=== PATIENT | female | born 1950 | race Caucasian/White ===

== ENCOUNTER 2021-04-08 12:24 | Outpatient (CLI) | payer MEDICARE, SELFPAY ==
[2021-04-08 13:37] LABS: SARS-CoV-2 RNA PCR Negative (Negative)
== END 2021-04-08 12:25 | disposition home or self-care (01) ==
LOC: CHSLAB 12:33
PROVIDERS: PCP Physician Assistant; Visit Provider Physician Assistant
DX: B34.9 Viral infection, unspecified (principal); Z20.822 Contact with and (suspected) exposure to COVID-19
CPT/HCPCS: C9803; U0003; U0005

== ENCOUNTER 2021-08-11 13:42 | Outpatient (CLI) | payer MEDICARE, OTHER, SELFPAY | END 2021-08-11 13:43 | disposition home or self-care (01) | LOC: CHSLAB 13:45 | PROVIDERS: PCP Physician Assistant; Visit Provider Specialist | DX: C44.41 Basal cell carcinoma of skin of scalp and neck (principal) | CPT/HCPCS: 88305; 88342 ==

== ENCOUNTER 2024-08-20 15:18 | Outpatient (CLI) | payer MEDICARE, SELFPAY ==
--- NOTE | ~2024-08-20 | XR_ITS ---
Lumbosacral Spine: AP and lateral views Clinical History: Pain Findings: The normal lordotic curve is maintained. There is mild dextroscoliosis. There is severe deg enerative disc narrowing at L2-L3. There is moderate degenerative disc narrowing L3-L4 and L4-L5. The re is moderate to advanced facet arthropathy throughout the lumbar spine.. The sacroiliac joints are normally outlined. Impression: Moderate to advanced degenerative spondylitic changes, as above. Reviewed, dictated and finalized at location M. NG TEACHER Impression: Moderate to advanced degenerative spondylitic changes, as above.
--- OUTSIDE RECORDS SUMMARY | 2024-08-20 18:01 | XMS_ITS | Referral Summary ---
Author Organization [address] Address [address] [place] [id number] Care Team Providers Care Procedural Nurse Name Role Phone Randy Friedman Primary Care Provider [phone] Allergies Active Allergy Reactions Criticality Noted Date Comments Sulfa (Sulfonamide Antibiotics) Other (See comments) Low 12/05/2023 Medications simvastatin (ZOCOR) 20 mg tablet 09/20/19 18 Active metFORMIN (GLUCOPHAGE) 500 mg tablet 09/20/19 18 Active ALPRAZolam (XANAX) 0.5 mg tablet 0 08/31/19 18 Active butalbital-acetami nophen-caffeine (FIORICET, ESGIC) 50-325-40 mg per tablet 09/23/19 18 Active CHANTIX 1 mg tablet 3 11/08/19 19 Active rpqrvmvb-mqqq-BT-c alcium-mins 18 mg iron-400 mcg-500 mg Ca tablet Take by mouth daily Active ondansetron ODT (ZOFRAN-ODT) 4 mg disintegrating tablet Take 1 tablet (4 mg total) by mouth every 8 (eight) hours as needed for nausea or vomiting 20 tablet 12/12/19 22 Active naproxen (NAPROSYN) 500 mg tabletIndications: Avulsion fracture of lateral malleolus of left fibula, closed, initial encounter Take 1 tablet (500 mg total) by mouth 2 (two) times a day with meals P.r.n. pain and swelling. Collaborating physician Jim Mcneal MD 30 tablet 12/01/19 24 Active Additional Information Patient not taking.Reported on 01/02/2024 traMADoL (ULTRAM) 50 mg tabletIndications: Avulsion fracture of lateral malleolus of left fibula, closed, initial encounter Take 1 tablet (50 mg total) by mouth every 8 (eight) hours as needed for pain P.r.n. pain not relieved by naproxen alone. Take 500 mg to 650 mg of acetaminophen with each dose. Take with food. Collaborating physician Jim Mcneal MD 15 tablet 12/01/19 Active Additional Information Patient not taking.Reported on 01/02/2024 amLODIPine (NORVASC) 10 mg tablet Take 1 tablet (10 mg total) by mouth daily 09/09/19 Active fluticasone propionate (FLONASE) 50 mcg/actuation nasal spray Administer 1 spray into each nostril daily Active ondansetron (ZOFRAN) 4 mg tablet Take 1 tablet (4 mg total) by mouth every 12 (twelve) hours as needed Active SUMAtriptan (IMITREX) 100 mg tablet Take 1 tablet (100 mg total) by mouth once as needed Active atenoloL (TENORMIN) 50 mg tablet Take 1 tablet (50 mg total) by mouth daily Active lisinopriL (PRINIVIL,ZESTRIL) 40 mg tablet Take 1 tablet (40 mg total) by mouth daily Active aspirin 81 mg enteric coated tablet Take 1 tablet (81 mg total) by mouth daily Active Active Problems Problem Noted Date Diagnosed Date Irritable bowel syndrome 12/05/2023 Migraine 12/05/2023 Osteoarthritis 12/05/2023 Avulsion fracture of lateral malleolus of left fibula, closed, initial encounter 12/01/2023 Hypertensive disorder 11/10/2013 Overview (12/05/2023): HYPERTENSION NOS Hyperlipidemia 11/10/2013 Overview (09/30/2016): HYPERLIPIDEMIA NEC/NOS Type 2 diabetes mellitus without complication (C MS/HCC) 11/10/2013 Overview (12/05/2023): DMII WO CMP NT ST UNCNTR Social History Tobacco Use Types Packs/Day Years Used Date Smoking Tobacco: Former Cigarettes 1 40 0 10/1978 - 10/2018 Smokeless Tobacco: Never Alcohol Use Standard Drinks/Week Comments No 0 (1 standard drink = 0.6 oz pur e alcohol) AUDIT-C Answer Date Recorded Q1: How often do you have a drink containing alcohol? Never 01/02/2024 Q2: How many drinks containi ng alcohol do you have on a typical day when you are drinking? Patient does not drink Q3: How often do you have si x or more drinks on one occasion? Never 01/02/2024 Personal Safety Answer Date Recorded Have you ever been in or are you currently in a harmful physical or emotional relationship or is someone making you feel afraid or unsafe? Denies 12/01/2023 Comments No Sex and Gender Information Value Date Recorded Sex Assigned at Not on file Legal Sex Female 11:54 PM [employer] Gender Identity Not on file Sexual Orientation Not on file Last Filed Vital Signs Vital Sign Reading Time Taken Comments Blood Pressure 170/75 01/30/2024 2:23 PM CDT Pulse 75 01/30/2024 2:23 PM CDT Temperature 36.1 C (97 F) 12/01/2023 5:13 PM CDT Respiratory Rate 18 01/02/2024 2:35 PM CDT Oxygen Saturation 100% 12/01/2023 5:13 PM CDT Inhaled Oxygen Concentration - - Weight 66.4 kg (146 lb 4.8 oz) 01/30/2024 2:23 P M CDT Height 165.1 cm (5' 5 ) 01/30/2024 2:23 PM CDT Body Mass Index 24.35 01/30/2024 2:23 PM CDT Plan of Treatment Not on file Procedures Procedure Name Priority Date/Time Associated Diagnosis Comments SCREENING MAMMOGRAM BILATERAL W SAROJ Schedule Routine, Read Routine (OP Routine) 10/28/2023 1:33 PM CDT Screening mammogram, encounter for EGFR STAT 12/10/2021 9:33 PM CDT from Last 3 Months or Most Recently Relevant to Health Maintenance Results * Screening Mammogram Bilateral W Saroj (10/28/2023 1:33 PM CDT) Anatomical Region Laterality Modality Breast Bilateral Mammography 10/31/2023 2:41 PM CDT Impressions 10/31/2023 2:41 PM CDT There is no mammographic evidence of malignancy. A 1 year screening mammogram is recommended. BI-RADS: 1 - Negative. The patient has been or will be contacted. The patient will be entered into a reminder system with a target due date of 1 year for her next mammogram. Electronically signed by: ROSHAN LOPEZMARILYN Prakash 10/31/2023 2:41 PM CDT EXAMINATION: SCREENING MAMMOGRAM BILATERAL W SAROJ ORDERING HEALTHCARE PROVIDER: SELF SCREENING MAMMOGRAM HISTORY: Routine screening mammography. COMPARISON: 08/18/2022, 06/29/2021, 06/09/2020. TECHNIQUE: CC and MLO views of both breasts were obtained with digital technique using digital breast tomosynthesis with C view. Computer aided detection was utilized. FINDINGS: DENSITY: The breasts have scattered areas of fibroglandular density. BREASTS: There is no new suspicious finding in either breast on mammogram. us Self Screening Mammogram IMG MAMMO PROCEDURES Fi nal Result * eGFR (12/10/2021 9:33 PM CDT) eGFR 100 mL/min/1. 73 m2 GILL MCKEON (ONUR) Comment: Interpretive Data Reference Interval Normal >/= 90 mL/min/1.73m2 Mildly decreased* 60 - 89 mL/min/1.73m2 Mildly to moderately decreased 45 - 59 mL/min/1.73m2 Moderately to severely decreased 30 - 44 mL/min/1.73m2 Severely decreased 15 - 29 mL/min/1.73m2 Kidney Failure < 15 mL/min/1.73m2 *Relative to young adult level Estimated glomerular filtration rate is determined by the 2020 CKD-EPI equation recommended by the [employer] (A Unifying Approach to GFR Estimation: Recommendations of the NKF-ASK Task Force on Reassessing the Inclusion of Race in Diagnosing Kidney Disease, JASN 2020). The CKD-EPI equation should not be used for patients with unstable renal function and has not been validated in children and those over 70. Current interpretive data was last reviewed 2021. Blood 12/10/2021 9:33 PM CDT 12/10/2021 9:36 PM CDT us Giovanna Gonzales MD LAB BLOOD ORDERABLES Final Resul t [facility] [place] [address] from Last 3 Months or Most Recently Relevant to Health Maintenance Insurance MEDICARE [employer] SENIOR SUPP[employer]MENT MEDICARE Care Teams Procedural Nurse Relationship Specialty Start Date End Date Randy Friedman PA [address] [place] [address] PCP - General 05/16/17
--- OUTSIDE RECORDS SUMMARY | 2024-08-20 18:01 | XMS_ITS | Data Portability ---
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 Plan of Treatment Reminders Order Date Submit Date Provider Last Modified By Organization Details Last Modified Time Details Appointments ANY 15 2024 02:30P Yogesh Friedman PA-C Not available Not available Not available Lab drug screen, urine 2023 024 daniele In-Office Order, Internal Use Only DO Not Attach Compendium DO Not Attach Compendium, Do Not Delete/merge, [id number] 12/12/2023 16:04:01 TSH + free T4, serum 2023 024 [facility], [address], [facility], [place], [address], 11/15/2023 13:12:41 CBC 2023 024 [facility], [address], [facility], [place], [address], 11/15/2023 13:12:45 CMP, serum or plasma 2023 024 [facility], [address], [facility], [place], [address], 11/15/2023 13:12:43 lipid panel, serum 2023 024 [facility], [address], [facility], [place], [address], 11/15/2023 13:12:42 HbA1c (hemoglob in A1c), blood 2023 024 [facility] In-Office Order, Internal Use Only DO Not Attach Compendium DO Not Attach Compendium, Do Not Delete/merge, [id number] 11/14/2023 15:43:40 drug screen, urine 2023 024 [facility] In-Office Order, Internal Use Only DO Not Attach Compendium DO Not Attach Compendium, Do Not Delete/merge, [id number] 11/14/2023 15:41:45 Referral physical therapist referral 2024 025 [facility], [address] [place] [address], [id number], 08/20/2024 15:42:37 Procedures None recorded. Surgeries None recorded. Imaging XR, lumbar spine 2024 025 [facility] [place], operated [facility], [address] [place], [address], 08/20/2024 16:20:48 Medication Orders gabapenti n 100 mg capsule 2024 025 [id number], [address], [place], [place], [id number], 08/20/2024 15:44:31 cyclobenz aprine 10 mg tablet 2024 025 [facility] #[id number], [address], [place], [place], [id number], 08/20/2024 15:44:30 ondansetr on 4 mg disintegr ating tablet 2023 024 [facility] #[id number], [address], [place], [place], [id number], 04/03/2024 18:25:35 Imitrex 100 mg tablet 2023 [id number], [address], [place], [place], [id number], 04/03/2024 18:25:39 escitalop lorenzo 10 mg tablet 2023 024 [id number], [address], [place], [place], [id number], 11/14/2023 15:26:21 Patient TargetsNo targets recorded. Patient Instructions Encounter Date Encounter Id Patient Instructions Last Modified By Organization Details Last Modified Time 11/14/2023 [id number] learning about high blood pressure jnanney Not available 11/14/2023 15:23:23 migraine aura without a headache: care instructions jnanney Not available 11/14/2023 15:23:23 12/12/2023 [id number] A healthy lifestyle: care instructions jnanney Not available 12/12/2023 15:20:16 broken ankle: care instructions jnanney Not available 12/12/2023 15:20:16 07/06/2024 [id number] A healthy lifestyle: care instructions jnanney Not available 07/06/2024 12:47:57 learning about high blood pressure jnanney Not available 07/06/2024 12:47:57 Reason for Referral Physical Therapist Referral for Lumbar radiculopathy Referring Physician: Magda Friedman, Family Medicine, Encounter Date: 08/20/2024 Results Created Date Observation Date Name Description Value Unit Range Abnormal Flag Note LastModifiedBy Organization Detail LastModifiedTime 11/14/19 24 11/15/2023 TSH+F REE T4 TSH 1.470 uIU/m L 0.450- 4.[address] [facility] [place] [id number] [place], [address], 11/15/2023 13:12:41 11/14/19 24 11/15/2023 TSH+F REE T4 T4,free(dire ct) 1.19 NG/dL 0.82-[address] [facility] [place] [id number] [place] [address], [address], 11/15/2023 13:12:41 11/14/19 24 11/15/2023 LIPID PANEL cholesterol, total 221 mg/dL 100-19 9 above high normal Not Available [address], [address], 11/15/2023 13:12:42 11/14/19 24 11/15/2023 LIPID PANEL triglyceride s 191 mg/dL 0-149 above high normal Not Available [address], [address], 11/15/2023 13:12:42 11/14/19 24 11/15/2023 LIPID PANEL HDL cholesterol 59 mg/dL >39 Not Available [address], [address], 11/15/2023 13:12:42 11/14/19 24 11/15/2023 LIPID PANEL VLDL cholesterol sha 34 mg/dL 5-40 Not Available [address], [address], 11/15/2023 13:12:42 11/14/19 24 11/15/2023 LIPID PANEL LDL chol calc ([facility]) 128 mg/dL 0-99 above high normal Not Available [address], [address], 11/15/2023 13:12:42 11/14/19 24 11/15/2023 COMP. METAB OLIC PANEL (14) glucose 151 mg/dL 70-99 above high normal Not Available [address], [address], 11/15/2023 13:12:43 11/14/19 24 11/15/2023 COMP. METAB OLIC PANEL (14) BUN 16 mg/dL 8-27 Not Available [address], [address], 11/15/2023 13:12:43 11/14/19 24 11/15/2023 COMP. METAB OLIC PANEL (14) creatinine 0.81 mg/dL 0.57-1 .00 Not Available [address], [address], 11/15/2023 13:12:43 11/14/19 24 11/15/2023 COMP. METAB OLIC PANEL (14) eGFR 78 mL/mi n/1.7 3 >59 Not Available [address], [address], 11/15/2023 13:12:43 11/14/19 24 11/15/2023 COMP. METAB OLIC PANEL (14) BUN/creatini ne ratio 20 - Not Available [address], [address], 11/15/2023 13:12:43 11/14/19 24 11/15/2023 COMP. METAB OLIC PANEL (14) sodium 137 mmol/ L 134-14 4 Not Available [address], [address], 11/15/2023 13:12:43 11/14/19 24 11/15/2023 COMP. METAB OLIC PANEL (14) potassium 4.4 mmol/ L 3.5-5. 2 Not Available [address], [address], 11/15/2023 13:12:43 11/14/19 24 11/15/2023 COMP. METAB OLIC PANEL (14) chloride 101 mmol/ L 96-106 Not Available [address], [address], 11/15/2023 13:12:43 11/14/19 24 11/15/2023 COMP. METAB OLIC PANEL (14) carbon dioxide, total 23 mmol/ L 20- Not Available [address], [address], 11/15/2023 13:12:43 11/14/19 24 11/15/2023 COMP. METAB OLIC PANEL (14) calcium 9.6 mg/dL 8.7-10 .3 Not Available [address], [address], 11/15/2023 13:12:43 11/14/19 24 11/15/2023 COMP. METAB OLIC PANEL (14) protein, total 6.6 g/dL 6.0-8. 5 Not Available [address], [address], 11/15/2023 13:12:43 11/14/19 24 11/15/2023 COMP. METAB OLIC PANEL (14) albumin 4.4 g/dL 3.9-4. 9 Not Available [address], [address], 11/15/2023 13:12:43 11/14/19 24 11/15/2023 COMP. METAB OLIC PANEL (14) globulin, total 2.2 g/dL 1.5-4. 5 Not Available [address], [address], 11/15/2023 13:12:43 11/14/19 24 11/15/2023 COMP. METAB OLIC PANEL (14) A/G ratio 2.0 1.2-2. 2 Not Available [address], [address], 11/15/2023 13:12:43 11/14/19 24 11/15/2023 COMP. METAB OLIC PANEL (14) bilirubin, total <0.2 mg/dL 0.0-1. 2 Not Available [address], [address], 11/15/2023 13:12:43 11/14/19 24 11/15/2023 COMP. METAB OLIC PANEL (14) alkaline phosphatase 99 IU/L 44-121 Not Available [address], [address], 11/15/2023 13:12:43 11/14/19 24 11/15/2023 COMP. METAB OLIC PANEL (14) AST (SGOT) 15 IU/L 0-40 Not Available [address], [address], 11/15/2023 13:12:43 11/14/19 24 11/15/2023 COMP. METAB OLIC PANEL (14) ALT (SGPT) 19 IU/L 0-32 Not Available [address], [address], 11/15/2023 13:12:43 11/14/19 24 11/15/2023 CARDI OVASC ULAR REPOR T interpretati on Note Suppl ement al repor t is avail able. Not Available [address], [address], 11/15/2023 13:12:44 11/14/19 24 11/15/2023 CARDI OVASC ULAR REPOR T pdf . Not Available [address], [address], 11/15/2023 13:12:44 11/14/19 24 11/15/2023 CBC, PLATE LET, NO DIFFE RENTI AL WBC 8.7 x10e3 /uL 3.4-10 .8 Not Available [address], [address], 11/15/2023 13:12:45 11/14/19 24 11/15/2023 CBC, PLATE LET, NO DIFFE RENTI AL RBC 4.03 x10e6 /uL 3.77-5 .28 Not Available [address], [address], 11/15/2023 13:12:45 11/14/19 24 11/15/2023 CBC, PLATE LET, NO DIFFE RENTI AL hemoglobin 12.7 g/dL 11.1-1 5.9 Not Available [address], [address], 11/15/2023 13:12:45 11/14/19 24 11/15/2023 CBC, PLATE LET, NO DIFFE RENTI AL hematocrit 37.7 % 34.0-4 6.6 Not Available [address], [address], 11/15/2023 13:12:45 11/14/19 24 11/15/2023 CBC, PLATE LET, NO DIFFE RENTI AL MCV 94 fL 79-97 Not Available [address], [address], 11/15/2023 13:12:45 11/14/19 24 11/15/2023 CBC, PLATE LET, NO DIFFE RENTI AL MCH 31.5 pg 26.6-3 3.0 Not Available [address], [address], 11/15/2023 13:12:45 11/14/19 24 11/15/2023 CBC, PLATE LET, NO DIFFE RENTI AL MCHC 33.7 g/dL 31.5-3 5.7 Not Available [address], [address], 11/15/2023 13:12:45 11/14/19 24 11/15/2023 CBC, PLATE LET, NO DIFFE GINA AL RDW 12.8 % 11.7-1 5.4 Not Available [facility] [address] [place] [address], [address], 11/15/2023 13:12:45 11/14/19 24 11/15/2023 CBC, PLATE LET, NO DIFFE GINA AL platelets 195 x10e3 /uL 150-45 0 Not Available [address], [address], 11/15/2023 13:12:45 11/14/19 24 11/14/2023 HbA1c (hemo globi n A1c), blood HbA1c 5.5 Not Available In-Office Order Internal Use Only DO Not Attach Compendium DO Not Attach Compendium, Do Not Delete/merge, 11/14/2023 15:23:11 11/14/19 24 11/14/2023 drug scree n, urine Methamphetam ine Negati ve Not Available In-Office Order Internal Use Only DO Not Attach Compendium DO Not Attach Compendium, Do Not Delete/merge, 11/11/2023 17:00:36 11/14/19 24 11/14/2023 drug scree n, urine THC Negati ve Not Available In-Office Order Internal Use Only DO Not Attach Compendium DO Not Attach Compendium, Do Not Delete/merge, 11/11/2023 17:00:36 11/14/19 24 11/14/2023 drug scree n, urine Cocaine (Delicia) Negati ve Not Available In-Office Order Internal Use Only DO Not Attach Compendium DO Not Attach Compendium, Do Not Delete/merge, 11/11/2023 17:00:36 11/14/19 24 11/14/2023 drug scree n, urine Barbiturates (Bar) Positi ve Not Available In-Office Order Internal Use Only DO Not Attach Compendium DO Not Attach Compendium, Do Not Delete/merge, 11/11/2023 17:00:36 11/14/19 24 11/14/2023 drug scree n, urine Benzodiazepi ne (Bzo) Positi ve Not Available In-Office Order Internal Use Only DO Not Attach Compendium DO Not Attach Compendium, Do Not Delete/merge, 11/11/2023 17:00:36 11/14/19 24 11/14/2023 drug scree n, urine Methadone (Mtd) Negati ve Not Available In-Office Order Internal Use Only DO Not Attach Compendium DO Not Attach Compendium, Do Not Delete/merge, 11/11/2023 17:00:36 11/14/19 24 11/14/2023 drug scree n, urine Buprenorphin e (Bup) Negati ve Not Available In-Office Order Internal Use Only DO Not Attach Compendium DO Not Attach Compendium, Do Not Delete/merge, 11/11/2023 17:00:36 11/14/19 24 11/14/2023 drug scree n, urine Oxycodone (Oxy) Negati ve Not Available In-Office Order Internal Use Only DO Not Attach Compendium DO Not Attach Compendium, Do Not Delete/merge, 11/11/2023 17:00:36 11/14/19 24 11/14/2023 drug scree n, urine MDMA (Ecstacy) Negati ve Not Available In-Office Order Internal Use Only DO Not Attach Compendium DO Not Attach Compendium, Do Not Delete/merge, 11/11/2023 17:00:36 11/14/19 24 11/14/2023 drug scree n, urine Amphetamines (Amp) Negati ve Not Available In-Office Order Internal Use Only DO Not Attach Compendium DO Not Attach Compendium, Do Not Delete/merge, 11/11/2023 17:00:36 11/14/19 24 11/14/2023 drug scree n, urine Opiates (opi) Negati ve Not Available In-Office Order Internal Use Only DO Not Attach Compendium DO Not Attach Compendium, Do Not Delete/merge, 11/11/2023 17:00:36 11/14/19 24 11/14/2023 drug scree n, urine Phencyclidin e (Pcp) Negati ve Not Available In-Office Order Internal Use Only DO Not Attach Compendium DO Not Attach Compendium, Do Not Delete/merge, 11/11/2023 17:00:36 11/14/19 24 11/14/2023 drug scree n, urine Tricyclic Antidepressa nts Invali d Not Available In-Office Order Internal Use Only DO Not Attach Compendium DO Not Attach Compendium, Do Not Delete/merge, 11/11/2023 17:00:36 11/14/19 24 11/14/2023 drug scree n, urine Fentanyl Negati ve Not Available In-Office Order Internal Use Only DO Not Attach Compendium DO Not Attach Compendium, Do Not Delete/merge, 11/11/2023 17:00:36 12/12/19 24 12/12/2023 drug scree n, urine Methamphetam ine Negati ve Not Available In-Office Order Internal Use Only DO Not Attach Compendium DO Not Attach Compendium, Do Not Delete/merge, 12/12/2023 08:53:54 12/12/19 24 12/12/2023 drug scree n, urine THC Positi ve Not Available In-Office Order Internal Use Only DO Not Attach Compendium DO Not Attach Compendium, Do Not Delete/merge, 12/12/2023 08:53:54 12/12/19 24 12/12/2023 drug scree n, urine Cocaine (Delicia) Negati ve Not Available In-Office Order Internal Use Only DO Not Attach Compendium DO Not Attach Compendium, Do Not Delete/merge, 12/12/2023 08:53:54 12/12/19 24 12/12/2023 drug scree n, urine Benzodiazepi ne (Bzo) Positi ve Not Available In-Office Order Internal Use Only DO Not Attach Compendium DO Not Attach Compendium, Do Not Delete/merge, 12/12/2023 08:53:54 12/12/19 24 12/12/2023 drug scree n, urine Methadone (Mtd) Negati ve Not Available In-Office Order Internal Use Only DO Not Attach Compendium DO Not Attach Compendium, Do Not Delete/merge, 12/12/2023 08:53:54 12/12/19 24 12/12/2023 drug scree n, urine Buprenorphin e (Bup) Negati ve Not Available In-Office Order Internal Use Only DO Not Attach Compendium DO Not Attach Compendium, Do Not Delete/merge, 12/12/2023 08:53:54 12/12/19 24 12/12/2023 drug scree n, urine Oxycodone (Oxy) Negati ve Not Available In-Office Order Internal Use Only DO Not Attach Compendium DO Not Attach Compendium, Do Not Delete/merge, 12/12/2023 08:53:54 12/12/19 24 12/12/2023 drug scree n, urine Barbiturates (Bar) Positi ve Not Available In-Office Order Internal Use Only DO Not Attach Compendium DO Not Attach Compendium, Do Not Delete/merge, 12/12/2023 08:53:54 12/12/19 24 12/12/2023 drug scree n, urine MDMA (Ecstacy) Negati ve Not Available In-Office Order Internal Use Only DO Not Attach Compendium DO Not Attach Compendium, Do Not Delete/merge, 12/12/2023 08:53:54 12/12/19 24 12/12/2023 drug scree n, urine Amphetamines (Amp) Negati ve Not Available In-Office Order Internal Use Only DO Not Attach Compendium DO Not Attach Compendium, Do Not Delete/merge, 12/12/2023 08:53:54 12/12/19 24 12/12/2023 drug scree n, urine Opiates (opi) Negati ve Not Available In-Office Order Internal Use Only DO Not Attach Compendium DO Not Attach Compendium, Do Not Delete/merge, 12/12/2023 08:53:54 12/12/19 24 12/12/2023 drug scree n, urine Phencyclidin e (Pcp) Negati ve Not Available In-Office Order Internal Use Only DO Not Attach Compendium DO Not Attach Compendium, Do Not Delete/merge, 12/12/2023 08:53:54 12/12/19 24 12/12/2023 drug scree n, urine Tricyclic Antidepressa nts Invali d Not Available In-Office Order Internal Use Only DO Not Attach Compendium DO Not Attach Compendium, Do Not Delete/merge, [id number] 12/12/2023 08:53:54 12/12/19 24 12/12/2023 drug scree n, urine Fentanyl Negati ve Not Available In-Office Order Internal Use Only DO Not Attach Compendium DO Not Attach Compendium, Do Not Delete/merge, [id number] 12/12/2023 08:53:54 10/31/19 24 10/28/2023 MAMMO , scree moises, digit al, bilat eral No observ ation record ed. NAHOMY [place] [address] , [place], [address], 10/31/2023 16:59:39 Result Notes None recorded. Problems Name Problem SNOMED Code Status Onset Date Resolution Date Notes Provider Name and Address Organization Details Recorded Time Type 2 diabetes mellitus without complication 644974382 Active [place], [place] - [facility] 11:02:35 Hyperlipidemia 05215560 Active 2013 [place] [facility] 11:02:35 Type 2 diabetes mellitus 10776500 Active 2013 [place] [facility] 11:02:35 Hypertensive disorder 94774603 Active 2013 [place] [facility] 11:02:35 Migraine 37367620 Active Miracle Sy MA null, [place] - [facility] 11:02:35 Osteoarthritis 358302915 Active [place], [place] - [facility] 11:02:35 Irritable bowel syndrome 96629282 Active [place] [facility] 11:02:35 Problem Notes None recorded. Procedures Surgical History Date Name Laterality Status Provider Name and Address Organization Details Recorded Time 2 Date of Last Mammogram completed Georgia Figueroa [place] - [facility] 12/23/2021 17:01:24 Tubal Ligation completed Cassandra Padilla [place] - [facility] 08/23/2014 15:42:56 Other completed Cassandra Padilla [place] - [facility] 08/23/2014 15:42:56 Imaging Results Imaging Date Name Status LastModified by Organiz ation Details LastModified Time 10/28/2023 MAMMO, screening, digital, bilateral completed NAHOMY [place] [address] , [place], [address], 10/31/2023 16:59:39 Procedure Notes None recorded. Medical Equipment None Reported. Allergies Allergen ID Allergen Name Allergen Category Reaction Reaction Severity Criticality Documentation Date Start Date Code Code System Note Provider Name and Address Organization Details Recorded Time 60084 Substance with sulfonami de structure and antibacte rial mechanism of action (substanc e) medicatio n Not available Not available Not available 08/23/2014 73227 8003 SNOMED Not Available Not Available Not Available Medications Name Sig Start Date Stop Date Status Note LastModified by Organization Details LastModified Time cyclobenzap rine 10 mg tablet Take 1 tablet 3 times a day by oral route for 30 days. 2024 active Not Available Not Available Not Avai lable metformin 500 mg tablet TAKE 1 TABLET BY MOUTH TWICE DAILY WITH THE MORNING AND EVENING MEAL 2024 active Not Available Not Available Not Avai lable butalbital- acetaminoph en-caffeine 50 mg-325 mg-40 mg capsule 2 TABS BID PRN 09/08 completed Not Available Not Available Not Available azithromyci n 250 mg tablet TAKE 2 TABLETS (500 MG) BY ORAL ROUTE ONCE DAILY FOR 1 DAY THEN 1 TABLET (250 MG) BY ORAL ROUTE ONCE DAILY FOR 4 DAYS 07/18 completed Not Available Not Available Not Available sumatriptan 100 mg tablet TAKE 1 TABLET BY MOUTH TWICE DAILY NEEDED active Not Available Not Available No t Available hydrocodone 5 mg-acetamin ophen 325 mg tablet 03/26 completed Not Available Not Available Not Available lisinopril 20 mg tablet TAKE 1 TABLET BY MOUTH DAILY 04/03 completed Not Available Not Available Not Available ondansetron HCl 4 mg tablet TAKE 1 TABLET BY MOUTH TWICE A DAY active Not Available Not Available No t Available Tubersol 5 tub. unit/0.1 mL intradermal injection solution Administe r .1ml interderm ally 07/18 completed Not Available Not Available Not Available atenolol 25 mg tablet TAKE 1 TABLET BY MOUTH DAILY. 05/09 completed Not Available Not Available Not Available diphenoxyla te-atropine 2.5 mg-0.025 mg tablet TAKE TWO TABLETS BY MOUTH 4 TIMES DAILY FOR 10 DAYS 05/04 completed Not Available Not Available Not Available topiramate 25 mg tablet active Not Available Not Available Not Available tramadol 50 mg tablet TAKE 1 TABLET BY MOUTH EVERY 8 HOURS NEEDED FOR PAIN NEEDED 12/11 completed Not Available Not Available Not Available butalbital- acetaminoph en-caffeine 50 mg-325 mg-40 mg tablet TAKE 2 TABLETS BY MOUTH TWICE DAILY NEEDED active Not Available Not Available No t Available alprazolam 0.5 mg tablet TAKE 1 TABLET BY MOUTH THREE TIMES DAILY NEEDED active Not Available Not Available No t Available amoxicillin 875 mg tablet TAKE 1 TABLET BY MOUTH EVERY 12 HOURS FOR 10 DAYS 08/12 completed Not Available Not Available Not Available citalopram 20 mg tablet TAKE ONE TABLET BY MOUTH ONCE DAILY 05/04 completed Not Available Not Available Not Available calcitonin (salmon) 200 unit/actuat ion nasal spray Take 1 spray every day by nasal route as directed. 10/08 completed Not Available Not Available Not Available amlodipine 10 mg tablet TAKE 1 TABLET BY MOUTH DAILY 2024 active Not Available Not Available Not Avai lable cephalexin 500 mg capsule TAKE 1 CAPSULE BY MOUTH THREE TIMES DAILY FOR 10 DAYS 08/12 completed Not Available Not Available Not Available simvastatin 20 mg tablet TAKE 1 TABLET BY MOUTH DAILY 2024 active Not Available Not Available Not Avai lable nicotine 21 mg/24 hr daily transdermal patch Apply 1 patch every day by transderm al route for 42 days. 05/01 completed Not Available Not Available Not Available gabapentin 300 mg capsule 03/26 completed Not Available Not Available Not Available gabapentin 100 mg capsule Take 1 capsule 3 times a day by oral route for 90 days. 2024 active Not Available Not Available Not Avai lable cefuroxime axetil 500 mg tablet Take 1 tablet every 12 hours by oral route for 10 days. 05/01 completed Not Available Not Available Not Available methylpredn isolone 4 mg tablets in a dose pack 12/22 completed Not Available Not Available Not Available lisinopril 40 mg tablet TAKE 1 TABLET BY MOUTH EVERY DAY active Not Available Not Available No t Available ondansetron 4 mg disintegrat ing tablet DISSOLVE 1 TABLET ON THE TONGUE TWICE DAILY NEEDED active Not Available Not Available No t Available fluticasone propionate 50 mcg/actuati on nasal spray,suspe nsion SHAKE LIQUID AND USE 1 SPRAY IN EACH NOSTRIL EVERY DAY active Not Available Not Available No t Available atenolol 50 mg tablet TAKE 1 TABLET BY MOUTH DAILY 2024 active Not Available Not Available Not Avai lable naproxen 500 mg tablet TAKE 1 TABLET BY MOUTH 2 TIMES A DAY WITH MEALS NEEDED FOR PAIN AND SWELLING 12/11 completed Not Available Not Available Not Available azithromyci n 500 mg tablet TAKE 1 TABLET BY MOUTH EVERY DAY FOR 3 DAYS 08/06 completed Not Available Not Available Not Available escitalopra m 10 mg tablet TAKE 1 TABLET BY MOUTH EVERY DAY active Not Available Not Available No t Available rosuvastati n 10 mg tablet 12/22 completed Not Available Not Available Not Available nitrofurant oin monohydrate /macrocryst als 100 mg capsule TAKE 1 CAPSULE BY MOUTH EVERY 12 HOURS FOR 10 DAYS 11/13 completed Not Available Not Available Not Available varenicline tartrate 1 mg tablet TAKE 1 TABLET BY MOUTH TWICE DAILY DIRECTED 2024 active Not Available Not Available Not Avai lable Chantix Starting Month Box 0.5 mg (11)-1 mg (42) tablets in dose pack Take 1 startr pk by oral route. 12/05 completed Not Available Not Available Not Available Fluzone High-Dose Quad 2020- (PF) 240 mcg/0.7 mL IM syringe PHARMACY ADMINISTE RED 10/08 completed Not Available Not Available Not Available Paxlovid 300 mg (150 mg x 2)-100 mg tablets in a dose pack TK 2 NIRMATREL VIR TS AND 1 RITONAVIR T TOGETHER PO BID FOR 5 DAYS BID FOR 5 DAYS 09/21 completed Not Available Not Available Not Available Vitals Date Recorded Body height Body mass index (BMI) Body weight Oxygen saturation Oxygen saturation in Arterial blood by Pulse oximetry Heart rate Systolic blood pressure Diastolic blood pressure Provider Name and Address Organization Details Last Updated DateTime 4 162.56 cm 26.3 kg/m2 70932.0 3 g 98 % 98 % 73 /min 122 mm[Hg] 86 mm[Hg] Emma Moreno MA [facility] 4 15:14:19 Date Recorded Body height Body mass index (BMI) Body weight Oxygen saturation Oxygen saturation in Arterial blood by Pulse oximetry Heart rate Systolic blood pressure Diastolic blood pressure Provider Name and Address Organization Details Last Updated DateTime 4 162.56 cm 26.3 kg/m2 84238.6 3 g 98 % 98 % 74 /min 150 mm[Hg] 68 mm[Hg] Emma Moreno MA [facility] 4 15:15:14 Date Recorded Body height Body mass index (BMI) Body weight Oxygen saturation Oxygen saturation in Arterial blood by Pulse oximetry Heart rate Respiratory rate Systolic blood pressure Diastolic blood pressure Provider Name and Address Organization Details Last Updated DateTime 4 162.56 cm 26.4 kg/m2 18354.5 1 g 98 % 98 % 68 /min 16 /min 128 mm[Hg] 69 mm[Hg] Mandie Dugan MA [facility] 4 18:07:01 Date Recorded Body height Body mass index (BMI) Body weight Oxygen saturation Oxygen saturation in Arterial blood by Pulse oximetry Heart rate Respiratory rate Systolic blood pressure Diastolic blood pressure Provider Name and Address Organization Details Last Updated DateTime 5 162.56 cm 23.2 kg/m2 13771.9 7 g 98 % 98 % 74 /min 16 /min 144 mm[Hg] 84 mm[Hg] Mandie Dugan MA [facility] 5 15:21:00 Social History Question Answer Notes LastModified by Organizat ion Details LastModified Time Tobacco Smoking Status Former Smoker quit 9 weeks ago Cassandra Holguin MA [facility] 09/21/2022 14:53:23 Do You Have An Advance Directive? Yes Information not available 10/08/2020 What Is Your Level Of Alcohol Consumption? Occasional Information not available 10/08/2020 Are You Blind Or Do You Have Difficulty Seeing? No Information not available 10/08/2020 What Is Your Level Of Caffeine Consumption? Moderate Information not available 10/08/2020 In The 14 Days Before Symptom Onset, Have You Had Close Contact With A Laboratory-confir med COVID-19 While That Case Was Ill? No Information not available 09/21/2019 If Patient Spent Time In [facility] - Does The Patient Live In [facility]? No Information not available 09/21/2019 In The 14 Days Before Symptom Onset, Have You Had Close Contact With A Person Who Is Under Investigation For COVID-19 While That Person Was Ill? No Information not available 09/21/2019 In The 14 Days Before Symptom Onset, Did The Patient Spend Time In [facility]? No Information not available 09/21/2019 Have You Been To An Area Known To Be High Risk For COVID-19? No Information not available 09/21/2019 Are You Currently Employed? No Information not available 10/08/2020 Are You Deaf Or Do You Have Serious Difficulty Hearing? No Information not available 10/08/2020 What Type Of Diet Are You Following? REGULAR Information not available 10/08/2020 Are There Any Guns Present In Your Home? No Information not available 10/08/2020 What Was The Date Of Your Most Recent Tobacco Screening? 08/20/2024 Information not available 08/20/2024 What Is Your Relationship Status? Information not available 10/08/2020 Do You Use Your Seat Belt Or Car Seat Routinely? Yes Information not available 10/08/2020 Do You Have Smoke And Carbon Monoxide Detectors In Your Home? Yes Information not available 10/08/2020 Are You Passively Exposed To Smoke? Yes Information no t available 10/08/2020 How Much Tobacco Do You Smoke? 0.5 PPD Information not available 05/01/2021 Do You Feel Stressed (tense, Restless, Nervous, Or Anxious, Or Unable To Sleep At Night)? AS6520-3 Information not available 05/01/2021 Do You Use Any Illicit Or Recreational Drugs? No Information not available 10/08/2020 Do You Use Sunscreen Routinely? Yes Information not available 10/08/2020 Has Tobacco Cessation Counseling Been Provided? Yes [email or web address] Information not available 12/05/2018 On What Date Was Tobacco Cessation Counseling Provided? 08/20/2024 Information not available 08/20/2024 How Many Years Have You Smoked Tobacco? 40 [email or web address] Information not available 08/23/2014 Do You Or Have You Ever Used Any Other Forms Of Tobacco Or Nicotine? No Information not available 10/08/2020 Sex: Female Functional Status Question Answer Note LastModified by Organizat ion Details LastModified Time Are you able to care for yourself? Yes Information not available 10/08/2020 What is your exercise level? Occasional Information not available 10/08/2020 Mental Status None recorded. Family History Nothing Reported Notes:Hx of Alcoholism, Asth ma, Breast Cancer, Heart Disease, HTN, Hyperlipidemia, Migraines, Osteoporosis Medical History Condition Response Coronary Artery Disease N Other N Atrial Fibrillation N High Blood Pressure Y Thyroid Problems N Kidney or Bladder Problems N GI Problems N Depression N COPD N Blood Clots N Eating Disorder N Skin Problems N Anemia N Heart Attack (TN) N Anxiety Disorder N Diabetes Y Muscle, Joint, or Bone Problems N Seizures/Epilepsy N Acid Reflux (GERD) N Cancer N Stroke N Asthma N Allergies N ADHD N Substance Abuse N High Cholesterol Y Hepatitis N Liver Disease N Schizophrenia N Headaches Y Heart Failure N Osteoporosis Y Gynecological History Statement/Question Response Date of Last Mammogram 06/29/2021 Obstetrics History GPAL:G 0 P 0 0 0 0 Immunizations Vaccine Type Date Status Note Provider Nam e and Address Organization Details Recorded Time COVID-19, mRNA, LNP-S, PF, 100 mcg/0.5mL dose or 50 mcg/0.25mL dose 1 completed Not Available [facility] 03/31/2023 11:37:04 COVID-19, mRNA, LNP-S, PF, 100 mcg/0.5mL dose or 50 mcg/0.25mL dose 1 completed Not Available [facility] 03/31/2023 11:37:04 COVID-19, mRNA, LNP-S, PF, 30 mcg/0.3 mL dose 1 completed Georgia Figueroa MA null, [place] [facility] 12/15/2022 17:16:24 Influenza, split virus, quadrivalent, preservative 1 completed Not Available [facility] 03/31/2023 11:37:04 Influenza, high-dose, quadrivalent, PF 0 completed HAWA HOWE MD Attn: [address] [place], [address], [place] [facility] 08/06/2022 14:51:37 Influenza, adjuvanted, quadrivalent, PF 2 completed HAWA HOWE MD Attn: [address] [place], [place], [address] [place] [address], [place] [facility] 08/06/2022 14:51:37 COVID-19, mRNA, LNP-S, bivalent, PF, 30 mcg/0.3 mL dose 2 completed HAWA HOWE MD Attn: Accounting[address] [place], [address], [place] [facility] 08/06/2022 14:51:37 Influenza, high-dose, quadrivalent, PF 1 completed Georgia Figueroa [place], [place] [facility] 12/15/2022 17:16:24 COVID-19, mRNA, LNP-S, PF, 30 mcg/0.3 mL dose 1 completed Georgia Figuero[place] [facility] 12/15/2022 17:16:24 COVID-19, mRNA, LNP-S, PF, 30 mcg/0.3 mL dose 1 completed Georgia Figueroa [place], [place] [facility] 12/15/2022 17:16:24 Past Encounters Encounter ID Performer Location Encounter Start Date Encounter Closed Date Diagnosis/Indication Diagnosis SNOMED-CT Code Diagnosis ICD10 Code Diagnosis Note [id number] [facility] [address] [place] [address] 08/15/2014 09:45:23 08/15/2014 10:09:53 Type 2 diabetes mellitus without complication [id number] [facility] [address] [place] [address] 08/23/2014 15:32:31 08/26/2014 19:15:29 Migraine [id number] Lashawn Dugan [facility] [address] [place] [address] 01/09/2015 14:25:30 01/09/2015 15:36:17 Osteoarthritis [id number] Magda Friedman PA-C [facility] [address] [place] [address] 08/21/2015 10:30:31 08/21/2015 10:53:10 Type 2 diabetes mellitus without complication 209657910 E11.9 [id number] Magda Friedman PA-C [facility] [address] [place] [address] 08/26/2015 15:39:25 08/26/2015 16:12:22 Type 2 diabetes mellitus without complication 832543852 E11.9 Osteoarthritis 818568140 M19.90 Migraine 13970926 G43.90 9 Irritable bowel syndrome 91574458 K58.9 [id number] Breonna Pride MA [facility] [address] [place] [address] 09/16/2016 09:31:56 09/16/2016 12:23:43 Type 2 diabetes mellitus without complication 849048984 E11.9 [id number] Magda Friedman PA-C [facility] [address] [place] [address] 09/20/2016 15:40:28 09/20/2016 17:45:53 Essential hypertension 33475310 I10 Screening for malignant neoplasm of colon 042995492 Z12.11 History of smoking 94082 61518 0434079 Z87.891 Generalize d anxiety disorder 05317097 F41.1 [id number] ARLETH Gregory [address] [place] [address] 04/25/2017 16:04:45 04/26/2017 11:57:37 Type 2 diabetes mellitus without complication 088278493 E11.9 Diabetes mellitus 193143 09 E11.9 [id number] Ruthy SELENA Mchugh-ASIA [facility] [address] [place] [address] 05/04/2017 15:53:53 05/16/2017 16:26:49 Screening mammography 65700827 Z12.31 Gynecologi c examination 67061841 Z01.624 [id number] Shayy Henry [facility] [address] [place] [address] 12/22/2017 10:25:56 12/22/2017 11:37:29 Essential hypertension 14777353 I10 Diabetes mellitus 546650 09 E11.9 [id number] Magda Friedman PA-C [facility] [address] [place] [address] 02/09/2018 09:55:58 02/09/2018 10:50:34 Type 2 diabetes mellitus without complication 264990749 E11.9 Screening for osteoporosis 079925418 Z13.820 Screening for malignant neoplasm of colon 444689567 Z12.11 Adult [facility] th examination 363216579 Z00.00 [id number] Breonna Pride [facility] [address] [place] [address] 02/13/2018 11:55:37 02/13/2018 13:41:30 Tuberculosis screening 274801979 Z11.1 [id number] Magda Friedman PA-C [facility] [address] [place] [address] 06/14/2018 18:09:38 06/14/2018 19:24:08 Acute bronchitis with bronchospasm 95512782 J20.8 Tobacco de pendence syndrome 19992553 F17.831 [id number] Magda Friedman PA-C [facility] [address] [place] [address] 07/18/2018 14:19:17 07/18/2018 15:31:13 Tobacco dependence syndrome 68292526 F17.064 [id number] Magda Friedman PA-C [facility] [address] [place] [address] 11/29/2018 14:14:34 11/30/2018 14:28:15 [id number] ARLETH Gregory [address] [place] [address] 12/05/2018 14:19:58 12/05/2018 15:41:06 Essential hypertension 55360474 I10 Diabetes mellitus 942523 09 E11.9 Generalize d anxiety disorder 46596332 F41.1 Migraine without aura 56 873573 G43.417 [id number] Magda Friedman PA-C [facility] [address] [place] [address] 05/09/2019 14:59:24 05/09/2019 17:02:39 Screening for malignant neoplasm of colon 239862812 Z12.11 Essential hypertension 80806979 I10 [id number] Magda Friedman PA-C [facility] [address] [place] [address] 05/23/2019 11:23:59 05/23/2019 14:16:09 Essential hypertension 61256812 I10 [id number] Magda Friedman PA-C [facility] [address] [place] [address] 07/02/2019 13:52:15 07/02/2019 17:50:09 Type 2 diabetes mellitus without complication 880487856 E11.9 Osteoarthritis 872642410 M19.90 Cervical radiculopathy 56497249 M54.12 Pre-surger y evaluation 672130585 Z01.463 [id number] Magda Friedman PA-C [facility] [address] [place] [address] 09/21/2019 14:25:22 09/21/2019 15:12:21 Osteoporosis 46715689 M81.0 [id number] ARLETH Gregory [facility] [address] [place] [address] 03/26/2020 09:36:16 03/26/2020 13:09:03 Essential hypertension 74478938 I10 Type 2 alba betes mellitus without complication 007322109 E11.9 Osteoarthritis 686672159 M15.0 [id number] Magda Friedman PA-C [facility] [address] [place] [address] 10/08/2020 09:55:58 10/08/2020 14:26:05 Essential hypertension 32704543 I10 Hyperlipidemia 93366101 E78.2 Type 2 alba betes mellitus without complication 714895158 E11.9 Migraine with aura 21161 06 G43.109 Tobacco user 668389354 Z 72.0 Generalize d anxiety disorder 34988797 F41.1 Dyspnea on exertion 6084 5006 R06.09 [id number] Magda Friedman PA-C [facility] [address] [place] [address] 05/01/2021 10:44:35 05/04/2021 14:49:46 Migraine 28014018 G43.009 Migraine with aura 77025 06 G43.109 Hyperlipidemia 87914608 E78.2 Essential hypertension 42736349 I10 [id number] Magda Friedman PA-C [facility] [address] [place] [address] 12/23/2021 16:31:25 12/24/2021 09:05:14 Abnormal urine 358222353 R82.90 Essential hypertension 27649892 I10 Generalize d anxiety disorder 73758167 F41.1 Type 2 alba betes mellitus without complication 950742953 E11.9 Migraine with aura 54526 06 G43.109 Hyperlipidemia 38696562 E78.2 [id number] Magda Friedman PA-C [facility] [address] [place] [address] 06/09/2022 16:47:19 06/09/2022 17:10:36 Upper respiratory infection 34301363 J00 Smoker 12703424 F17.014 [id number] MD Jaime DIAL (PHARMACIST IN CHARGE) [address] [place] [address] 08/06/2022 14:24:19 08/10/2022 11:53:32 Acute sinusitis 36522592 J01.90 - Reassured patient that this is likely viral sinusitis; if no improvemen t or worsening in 1 week, can return for evaluation for possible bacterial sinusitis- Recommende d discontinu ing Sinex Severe nasal spray and to use fluticason e nasal spray instead- Continue supportive care at home, including saline flushes, humidifier use, and OTC pain medication for headaches as needed [id number] Magda Friedman PA-C [facility] [address] [place] [address] 09/21/2022 14:48:27 09/22/2022 12:24:43 Generalized anxiety disorder 71511797 F41.1 Essential hypertension 57189281 I10 Overweight 403380286 E66 .3 Type 2 alba betes mellitus without complication 739526861 E11.9 Migraine with aura 89566 06 G43.256 [id number] Magda Friedman PA-C [facility] [address] [place] [address] 12/17/2022 15:39:11 12/20/2022 14:37:09 Long-term drug therapy 785544170 Z79.899 Seasonal a llergic rhinitis 854536304 J30.2 [id number] Magda Friedman PA-C [facility] [address] [place] [address] 03/31/2023 11:36:40 04/04/2023 17:12:58 Essential hypertension 85994245 I10 Acute maxi llary sinusitis 01443295 J01.01 otc symptom relief Type 2 alba betes mellitus without complication 634121740 E11.9 Iron defic iency anemia 81374862 D50.8 Overweight 861207434 E66 .3 [id number] Magda Friedman PA-C [facility] [address] [place] [address] 08/12/2023 14:45:50 08/16/2023 09:58:48 Dysuria 02772856 R30.0 Rib pain 813513532 R07.8 1 Overweight 456307606 E66 .3 [id number] Magda Friedman PA-C [facility] [address] [place] [address] 11/14/2023 15:03:39 11/24/2023 15:34:27 Long-term drug therapy 681172618 Z79.899 Unintentio nal weight gain 1978162190 66212 R63.5 Essential hypertension 30243922 I10 Migraine with aura 89019 06 G43.109 Mixed anxi ety and depressive disorder 719013096 F41.8 [id number] ARLETH Gregory [facility] [address] [place] [address] 12/12/2023 15:05:07 12/13/2023 16:25:04 Long-term drug therapy 564723937 Z79.899 Closed fra cture of ankle 09974692 S82.55XA Overweight 354087432 E66 .3 [id number] Magda Friedman PA-C [facility] [address] [place] [address] 04/03/2024 17:38:31 04/05/2024 14:56:30 Migraine with aura 0099935 G43.109 Nausea and vomiting 1693 1999 R11.2 [id number] Magda Friedman PA-C [facility] [address] [place] [address] 07/06/2024 10:23:21 07/09/2024 08:25:14 Mixed anxiety and depressive disorder 326659567 F41.8 Essential hypertension 92709222 I10 Overweight 976691762 E66 .3 [id number] Magda Friedman PA-C [facility] [address] [place] [address] 08/20/2024 15:08:56 08/20/2024 15:44:59 Lumbar radiculopathy 103037521 M54.16 Body mass index 20-24 - normal 168620532 Z68.23 Health Concerns Section Related Observation LastModified by Organization Detai ls LastModified Time None Recorded Concern Status LastModified by Organization Details LastModified Time None Recorded Advance Directives Directive Y: Payers Encounter Date Sequence Insurance Name Policy Number Policy [place] Covered Member ID [place] Member ID Guarantor Name 11/14/2023 1 [place] Charmaine Verdin [id number] Charmaine Verdin 11/14/2023 2 [employer]TRY [employer] (MEDICARE SUPPLEMENT) Charmaine Verdin [id number] Charmaine Verdin 12/12/2023 1 [place] Charmaine Verdin [id number] Charmaine Verdin 12/12/2023 2 [employer] (MEDICARE SUPPLEMENT) Charmaine Verdin [id number] Charmaine Verdin 04/03/2024 1 [place] Charmaine Verdin [id number] Charmaine Verdin 04/03/2024 2 [employer] (MEDICARE SUPPLEMENT) Charmaine Verdin [id number] Charmaine Verdin 07/06/2024 1 [place] Charmaine Verdin [id number] Charmaine Verdin 07/06/2024 2 [employer] (MEDICARE SUPPLEMENT) Charmaine Verdin [id number] Charmaine Verdin 08/20/2024 1 [place] Charmaine Verdin [id number] Charmaine Verdin 08/20/2024 2 [employer] (MEDICARE SUPPLEMENT) Charmaine Verdin [id number] Charmaine Verdin Notes Date Note Type Note Provider Name and Address Organization Details Recorded Time 11/14/2023 text/html says she is gaining weight but says she has decreased her junk food...here for 3 month vs controls Magda Friedman PA-C Attn: [address] [place], [address], [facility] 11/14/2023 15:26:28 12/12/2023 text/html 3 month vs controls...also broke her left ankle.. Magda Friedman PA-C Attn: [address] [place], [address], [facility] 12/12/2023 15:21:13 04/03/2024 text/html 3 month vs controls all is well Magda Friedman PA-C Attn: [address] [place], [address], [facility] 04/03/2024 18:26:01 07/06/2024 text/html 3 month vs meds...all is well Magda Friedman PA-C Attn: [address] [place], [address], [facility] 07/06/2024 12:50:01 08/20/2024 text/html developed radiating back pain since having shoveled snow..couple days after..has worsened over past month...reports lack of strength...using ice/heat for awhile...hx of cervical surgery [facility] Magda Friedman PA-C Attn: [address] [facility], [place], [address], [facility] 08/20/2024 15:44:55 OBGyn Episode No OBEpisode recorded.
--- OUTSIDE RECORDS SUMMARY | 2024-08-20 18:01 | XMS_ITS | Clinical Summary ---
Author Organization [address] Address [address] [place] [address] Care Team Providers Care Model Home Sales Greeter Name Role Phone Randy Friedman Primary Care Provider [phone] Allergies Active Allergy Reactions Criticality Noted Date Comments Sulfa (Sulfonamide Antibiotics) Other (See comments) Low 12/05/2023 Medications simvastatin (ZOCOR) 20 mg tablet 09/20/19 18 Active metFORMIN (GLUCOPHAGE) 500 mg tablet 09/20/19 18 Active ALPRAZolam (XANAX) 0.5 mg tablet 0 08/31/19 18 Active butalbital-acetami nophen-caffeine (FIORICET, ESGIC) 50-325-40 mg per tablet 09/23/19 18 Active CHANTIX 1 mg tablet 3 11/08/19 19 Active hlirqgry-saew-SU-c alcium-mins 18 mg iron-400 mcg-500 mg Ca [...] (12/05/2023): DMII WO CMP NT [facility] UNCNTR Surgical History Surgery Date Site/Laterality Comments TUBAL LIGATION Bilateral tubal ligation CARPAL TUNNEL RELEASE Carpal tunnel release MOLE REMOVAL skin cancer mole removal Medical History Medical History Date Comments Hypertension Hypertension Hyperlipidemia Hyperlipidemia Depression Depression Headache Cancer (CMS/HCC) (HCC) skin canc er Osteoporosis Migraines Family History Medical History Relation Name Comments Lung cancer Father Cancer -lung; C ause of : Cancer -lung Breast cancer Maternal Grandmother Coronary artery disease Mother Mariano nary artery disease; Hyperlipidemia Mother Hyperlipidemi a; Hypertension Mother Hypertension; Other Mother Alive and well; Alcohol abuse Other Arthritis Other Heart disease Other Osteoporosis Other Relation Name Status Comments Father Maternal Grandmother Mother Alive Other Social History Tobacco Use Types Packs/Day Years [...] on file Legal Sex Female 11:54 PM [employer] Gender Identity Not on file Sexual Orientation Not on file Obstetrics History Para Term AB IAB SAB Ectopic Multiple Livin g Live Births 3 3 3 Date Outcome GA Total Labor Labor/2nd/3rd Weight Sex Type Anes PTL Jada A1 A5 Name Clin Term Term Term Last Filed Vital Signs Vital Sign Reading [...] 01/30/2024 2:23 PM CDT Plan of Treatment Health Maintenance Due Date Last Done Comments Albumin Creatinine Ratio, Urine 1952 Colon Cancer Screening-Colonoscopy 1952 Fall Risk Assessment 1952 Hemoglobin A1C 1952 Hepatitis C Screening 1952 Dilated Eye Exam 1952 Foot Exam 1952 Lipid Panel 1952 DTaP/Tdap/Td Vaccine (1 - Tdap) 12/08/1963 Hepatitis B Screening 1970 Pneumococcal vaccine 65+ (1 of 2 - PCV) 12/08/1971 Lung Cancer Screening 2002 Zoster Vaccine (1 of 2) 2002 Well Visit 65+ 2017 Depression Screening 09/24/2018 09/24/2017 Osteoporosis Screening-Bone Density Scan 02/18/2020 02/17/2018, 02/17/2018, 02/09/2018 eGFR 12/10/2022 12/10/2021 Covid-19 Vaccine (4 - 2023-2 5 season) 2024 04/21/2021, 09/10/2020, 09/10/2020, Additional history exists Influenza Vaccine (#1) 2024 , 04/21/2021, 04/17/2020 Breast Cancer Screening-Mammogram 10/27/2024 10/28/2023, 08/18/2022, 08/18/2022, Additional history exists Procedures Procedure Name Priority Date/Time Associated Diagnosis [...] her next mammogram. Electronically signed by: ROSHAN FADIMARILYN Prakash 10/31/2023 2:41 PM CDT EXAMINATION: SCREENING [...] Final Resul t [facility] Department [place] [employer] [place] [address] from Last 3 Months or Most Recently Relevant to Health Maintenance Insurance MEDICARE [employer] SENIOR SUPPLEMENT MEDICARE Care Teams Model Home Sales Greeter Relationship Specialty Start Date End Date Randy Friedman PA [address] [place] [address] PCP - General 05/16/17
--- OUTSIDE RECORDS SUMMARY | 2024-08-20 18:01 | XMS_ITS | Continuity of Care Document ---
Author Organization [facility] Address [address] [place] [address] Care Team Providers Care Dirt Bike Racer Name Role Phone MAGDA FRIEDMAN Primary Care Provider [phone] Assessment No assessment recorded. Plan of Treatment Reminders Order Date Submit Date Provider Last Modified By Organization Details Last Modified Time Details Appointments ANY 15 2024 02:30P M Magda Friedman PA-C Not available Not available Not available Lab None recorded. Referral physical therapist referral 2024 025 [facility], [address] [place], [address], 08/20/2024 15:42:37 Procedures None recorded. Surgeries None recorded. Imaging XR, lumbar spine 2024 025 [facility], [address] [place], [address], 08/20/2024 16:20:48 Medication Orders gabapenti n 100 mg capsule 2024 025 [id number], [address], [place], [place], [id number], 08/20/2024 15:44:31 cyclobenz aprine 10 mg tablet 2024 025 [facility] [facility] [employer] [facility] #[id number], [address], [place], [place], [id number], 08/20/2024 15:44:30 Patient TargetsNo targets recorded. Patient InstructionsNo instructions recorded. Reason for Referral Physical Therapist Referral for Lumbar radiculopathy Referring Physician: Magda Friedman, Family Medicine, Encounter Date: 08/20/2024 Problems Name Problem SNOMED Code Status Onset Date Resolution Date Notes Provider Name and Address Organization Details Recorded Time Type 2 diabetes mellitus without complication 090885573 Active [place], [place] - [facility] 11:02:35 Hyperlipidemia 50422479 Active 2013 Miracle Sy [place], [place] [facility] 1 11:02:35 Type 2 diabetes mellitus 50426883 Active 2013 Miracle Sy [place], [place] [facility] 1 11:02:35 Hypertensive disorder 01303569 Active 2013 Miracle Sy [place] [facility] 1 11:02:35 Migraine 25987723 Active Miracle Sy [place] [facility] 1 11:02:35 Osteoarthritis 096543836 Active Miracle Sy [place] [facility] 1 11:02:35 Irritable bowel syndrome 91591771 Active [place], [place] - [facility] 1 11:02:35 Problem Notes None recorded. Procedures Surgical History Date Name Laterality Status Provider Name and Address Organization Details Recorded Time 2 Date of Last Mammogram completed Georgia Figueroa MA CT - [facility] 12/23/2021 17:01:24 Tubal Ligation completed Cassandra Padilla MA CT - [facility] 08/23/2014 15:42:56 Other completed Cassandra Padilla MA CT - [facility] 08/23/2014 15:42:56 Imaging Results None recorded. Procedure Notes None recorded. Medical Equipment None Reported. Allergies Allergen ID Allergen Name Allergen Category Reaction Reaction Severity Criticality Documentation Date Start Date Code Code System Note Provider Name and Address Organization Details Recorded Time 80236 Substance with sulfonami de structure and antibacte rial mechanism of action (substanc e) medicatio n Not available Not available Not available 08/23/2014 58220 8003 SNOMED Not Available Not Available Not [...] Not Available Not Available Fluzone High-Dose Quad (PF) 240 mcg/0.7 mL IM syringe PHARMACY [...] Updated DateTime 5 162.56 cm 23.2 kg/m2 74096.9 7 g 98 % 98 % 74 /min 16 /min 144 mm[Hg] 84 mm[Hg] Mandie Dugan MA [facility] 5 15:21:00 Social History Question Answer Notes LastModified by Organizat ion Details LastModified Time Tobacco Smoking Status Former Smoker quit 9 weeks ago Cassandra Holguin MA [facility], [place] - [facility] 09/21/2022 14:53:23 Do You Have An Advance [...] If Patient Spent Time In [facility] - Does The Patient Live In [facility]? No Information not available 09/21/2019 In The 14 Days Before Symptom Onset, Have You Had Close Contact With A Person Who Is Under Investigation For COVID-19 While That Person Was Ill? No Information not available 09/21/2019 In The 14 Days Before Symptom Onset, Did The Patient Spend Time In [facility]? No Information not available 09/21/2019 [...] Anxious, Or Unable To Sleep At Night)? [id number] Information not available 05/01/2021 Do You Use [...] Response Coronary Artery Disease N Other N High Blood Pressure Y Atrial Fibrillation N Thyroid Problems N Kidney or Bladder Problems N GI Problems N Depression N COPD N Blood Clots N Skin Problems N Eating Disorder N Anemia N Heart Attack (NH) N Anxiety Disorder N Diabetes Y Muscle, [...] 50 mcg/0.25mL dose 1 completed Not Available [facility] 03/31/2023 11:37:04 COVID-19, mRNA, LNP-S, PF, 100 mcg/0.5mL dose or 50 mcg/0.25mL dose 1 completed Not Available [facility] 03/31/2023 11:37:04 COVID-19, mRNA, LNP-S, PF, 30 mcg/0.3 mL dose 1 completed Georgia Figueroa [place], [place] [facility] 12/15/2022 17:16:24 Influenza, split virus, quadrivalent, preservative 1 completed Not Available [facility] 03/31/2023 11:37:04 Influenza, high-dose, quadrivalent, PF 0 completed HAWA HOWE MD Attn: Accounting[address] [place], [place], [address] [place] [address], [place] [facility] 08/06/2022 14:51:37 Influenza, adjuvanted, quadrivalent, PF 2 completed HAWA HOWE MD Attn: Accounting[address] [place], [address] [place] [address], [place] [facility] 08/06/2022 14:51:37 COVID-19, mRNA, LNP-S, bivalent, PF, 30 mcg/0.3 mL dose 2 completed HAWA HOWE MD Attn: Accounting[address] [place], [address] [place] [address], [place] [facility] 08/06/2022 14:51:37 Influenza, high-dose, quadrivalent, PF 1 completed Georgia Figuero[place] [facility] 12/15/2022 17:16:24 COVID-19, mRNA, LNP-S, PF, 30 mcg/0.3 mL dose 1 completed Georgia Figuero[place] [facility] 12/15/2022 17:16:24 COVID-19, mRNA, LNP-S, PF, 30 mcg/0.3 mL dose 1 completed Georgia Figueora [place], [place] [facility] 12/15/2022 17:16:24 Past Encounters Encounter ID Performer Location Encounter Start Date Encounter Closed Date Diagnosis/Indication Diagnosis SNOMED-CT Code Diagnosis ICD10 Code Diagnosis Note [id number] Magda Friedman PA-C [facility] [address] [place] [address] 08/20/2024 15:08:56 08/20/2024 15:44:59 Lumbar radiculopathy 393342033 M54.16 Body mass index 20-24 - normal 664059027 Z68.23 Health Concerns Section Related Observation LastModified by Organization Detai ls LastModified Time None Recorded Concern Status LastModified by Organization Details LastModified Time None Recorded Payers Encounter Date Sequence Insurance Name Policy Number Policy [place] Covered Member ID [place] Member ID Guarantor Name 08/20/2024 1 [place] Charmaine Verdin [id number] Charmaine Verdin 08/20/2024 2 [employer] (MEDICARE SUPPLEMENT) Charmaine Verdin [id number] Charmaine Verdin Notes Date Note Type Note Provider Name and Address Organization Details Recorded Time 08/20/2024 text/html developed radiating back pain since having shoveled snow..couple days after..has worsened over past month...reports lack of strength...using ice/heat for awhile...hx of cervical surgery [facility] Magda Friedman PA-C Attn: Accounting,[address] [place], [address], [facility] 08/20/2024 15:44:55 OBGyn Episode No OBEpisode recorded.
--- OUTSIDE RECORDS SUMMARY | 2024-08-20 18:01 | XMS_ITS | Clinical Summary ---
Author Organization [facility] Address [address] [place] [address] Phone Care Team Providers Care Manager Business Process Name Role Phone Randy Friedman Primary Care Provider Family History Medical History Relation Name Comments Breast Cancer Maternal Grandmother Relation Name Status Comments Maternal Grandmother Social History Tobacco Use Types Packs/Day Years Used Date Smoking Tobacco: Never Assessed Comments No Sex and Gender Information Value Date Recorded Sex Assigned at Not on file Legal Sex Female 1:17 PM CDT Gender Identity Not on file Sexual Orientation Not on file Plan of Treatment Health Maintenance Due Date Last Done Comments Hepatitis C Virus (HCV) Screening 1950 TdaP Immunization 1950 Colonoscopy 1997 Colorectal Cancer Screening 1997 Cologuard 2002 Immunochemical Fecal Occult Blood 2002 Pneumococcal Immunization (50+ years) (1 of 1 - PCV) 2002 Zoster Immunization (1 of 2) 2002 DEXA Bone Density 02/18/2020 02/17/2018 Mammogram 08/18/2023 08/18/2022, 010 08/2021, 06/09/2020, Additional history exists Influenza Immunization (#1) 02/26/202403/28, 04/02/2022, 04/21/2021, Additional history exists SARS-COV-2 Immunization ( season) 2024 04/19/2023, 04/02/2022, 04/21/2021, Additional history exists Respiratory Syncytial Virus (RSV) Immunization (Adult) Completed 05/03/2023 Hepatitis B Immunization Aged Out No longer eligible based on patient's age to complete this topic Meningococcal Immunization (ACWY) Aged Out No longer eligible based on patient's age to complete this topic Rotavirus Immunization Aged Out No lo nger eligible based on patient's age to complete this topic Procedures Procedure Name Priority Date/Time Associated Diagnosis Comments [facility] SCREENING BILATERAL DIGITAL W CAD W KEYLA Routine 08/18/2022 12:56 PM DENTAL ASSISTANT MEDICAL ASSISTANT Visit for screening mammogram [facility] BONE DENSITOMETRY AXIAL SKELETON Routine 02/17/2018 10:03 AM CDT Age related osteoporosis, unspecified pathological fracture presence from Last 3 Months or Most Recently Relevant to Health Maintenance Results * [facility] SCREENING BILATERAL DIGITAL W CAD W KEYLA (08/18/2022 12:56 PM DENTAL ASSISTANT MEDICAL ASSISTANT) Anatomical Region Laterality Modality breast Bilateral Mammography 08/18/2022 12:3 5 PM DENTAL ASSISTANT MEDICAL ASSISTANT Narrative 08/19/2022 8:49 AM DENTAL ASSISTANT MEDICAL ASSISTANT - [facility] SCREENING BILATERAL DIGITAL W CAD W KEYLA BILATERAL DIGITAL SCREENING MAMMOGRAM 3D/2D WITH CAD WITH MEDIOLATERAL OBLIQUE CRANIOCAUDAL: 08/18/2022 The study was acquired using digital technology and interpreted from soft copy. Current study was also evaluated with ICAD version 7.2. 2D digital mammographic views, as well as 3D digital tomosynthesis were performed in the CC and MLO projections. CLINICAL: Routine screening. Patient has no complaints. Personal history of basal cell skin cancer. Maternal grandmother had breast cancer. COMPARISONS: Comparison is made to exams dated: 06/29/2021, 06/09/2020, 05/21/2019, and 05/08/2018 [facility]. BREAST TISSUE:There are scattered fibroglandular densities in both breasts. FINDINGS: There is a benign calcification in the left breast. No significant masses, calcifications, or other findings are seen in either breast. There has been no significant interval change. IMPRESSION: BI-RAD 2 BENIGN There is no mammographic evidence of malignancy. A 1 year screening mammogram is recommended. A letter will be sent to the patient with these results. The patient will be entered into a reminder system with a target due date of 1 year for her next screening exam. Electronically signed by: Anita wolfe/penrad:08/18/2022 17:11:15 Burn Table Operator(s): RT Sae(R)(M), [facility] letter sent: Normal Exam Reading location: [facility] BI-RADS: 2 Benign Procedure Note Anita Kenyon MD - 08/19/2022 - [facility] SCREENING BILATERAL DIGITAL W CAD W KEYLA BILATERAL DIGITAL SCREENING MAMMOGRAM 3D/2D WITH CAD WITH MEDIOLATERAL OBLIQUE CRANIOCAUDAL: 08/18/2022 The study was acquired using digital technology and interpreted from soft copy. Current study was also evaluated with ICAD version 7.2. 2D digital mammographic views, as well as 3D digital tomosynthesis were performed in the CC and MLO projections. CLINICAL: Routine screening. Patient has no complaints. Personal history of basal cell skin cancer. Maternal grandmother had breast cancer. COMPARISONS: Comparison is made to exams dated: 06/29/2021, 06/09/2020, 05/21/2019, and 05/08/2018 [facility]. BREAST TISSUE:There are scattered fibroglandular densities in both breasts. FINDINGS: There is a benign calcification in the left breast. No significant masses, calcifications, or other findings are seen in either breast. There has been no significant interval change. IMPRESSION: BI-RAD 2 BENIGN There is no mammographic evidence of malignancy. A 1 year screening mammogram is recommended. A letter will be sent to the patient with these results. The patient will be entered into a reminder system with a target due date of 1 year for her next screening exam. Electronically signed by: Anita wolfe/penrad:08/18/2022 17:11:15 Burn Table Operator(s): RT Sae(R)(M), [facility] letter sent: Normal Exam Reading location: [facility] BI-RADS: 2 Benign us Randy Friedman [facility] IMG MAMMO ORDERABLES Final Re sult * [facility] BONE DENSITOMETRY AXIAL SKELETON (02/17/2018 10:03 AM CDT) Anatomical Region Laterality Modality BODY N/A Other 02/17/2018 3:29 PM CDT Impressions 02/17/2018 3:32 PM CDT IMPRESSION: Low bone mass Bone mineral density: Normal (T-score above or = -1.0) Low bone mass (T-score between -1.0 and -2.5) replaces the previously used term osteopenia Osteoporosis (T-score = or below -2.5) Medical evaluation for secondary causes of low bone mineral density may be appropriate. FRAX is a World Health Organization validated fracture risk assessment tool that calculates a person's 10 year probability of a major osteoporosis related fracture and hip fracture. According to the National Osteoporosis Foundation guidelines, postmenopausal women and men age 50 or older with low bone mass and a 10 year probability of a major osteoporosis related fracture = or greater than 20% or a 10 year probability of a hip fracture = or greater than 3% should be considered for treatment. For further information, including treatment recommendations, please refer to the 2013 ISCD Official Positions (http://www.iscd.org) and the NOF's Clinician's Guide to Prevention and Treatment of Osteoporosis (http://www.nof.org/professionals/clinical-guidelines) Narrative 02/17/2018 3:32 PM CDT EXAM DESCRIPTION: [facility] BONE DENSITOMETRY AXIAL SKELETON REASON FOR STUDY: 67 y/o year old F with given history of screening. Grant Specialist/Model: [employer] (S/N [id number]) CLINICAL INFORMATION: Current height: 63.5 inches Maximum height: 65 inches Weight: 132 pounds Risk factors: Current smoker. Patient takes multivitamin. Does not perform weight-bearing exercise regularly. Consumes dairy products and caffeinated beverages. COMPARISON: None available. FINDINGS: AP LUMBAR SPINE L1-L4: Total BMD is 1.036 g/cm2 T-score is -1.3 LEFT HIP: Total BMD is 0.905 g/cm2 T-score is -0.8 Femoral neck BMD is 0.81 g/cm2 T-score is -1.1 Fracture risk assessment (FRAX): 10 year risk for a major osteoporotic fracture is 7.8 % 10 year risk for a hip fracture is 1.1 % The FRAX tool has not been validated in patients currently or previously treated with pharmacotherapy for osteoporosis. In such patients, clinical judgement must be exercised in interpreting FRAX scores as the fracture risk may be overestimated. THIS IS AN ELECTRONICALLY VERIFIED FINAL REPORT 02/17/2018 3:29 PM - Electronically signed by Donaldo SHAHID: KLEBER Report ID: [id number] Reading Location: [place] [address] Procedure Note Donaldo Tolentino MD - 02/17/2018 EXAM DESCRIPTION: [facility]AS[facility] BONE DENSITOMETRY AXIAL SKELETON REASON FOR STUDY: 67 y/o year old F with given history of screening. Grant Specialist/Model: [employer] (S/N [id number]) CLINICAL INFORMATION: Current height: 63.5 inches Maximum height: 65 inches Weight: 132 pounds Risk factors: Current smoker. Patient takes multivitamin. Does not perform weight-bearing exercise regularly. Consumes dairy products and caffeinated beverages. COMPARISON: None available. FINDINGS: AP LUMBAR SPINE L1-L4: Total BMD is 1.036 g/cm2 T-score is -1.3 LEFT HIP: Total BMD is 0.905 g/cm2 T-score is -0.8 Femoral neck BMD is 0.81 g/cm2 T-score is -1.1 Fracture risk assessment (FRAX): 10 year risk for a major osteoporotic fracture is 7.8 % 10 year risk for a hip fracture is 1.1 % The FRAX tool has not been validated in patients currently or previously treated with pharmacotherapy for osteoporosis. In such patients, clinical judgement must be exercised in interpreting FRAX scores as the fracture risk may be overestimated. THIS IS AN ELECTRONICALLY VERIFIED FINAL REPORT 02/17/2018 3:29 PM - Electronically signed by Donaldo Tolentino M.D. KLEBER: KLEBER Report ID: [id number] Reading Location: [place] [address] IMPRESSION: Low bone mass Bone mineral density: Normal (T-score above or = -1.0) Low bone mass (T-score between -1.0 and -2.5) replaces the previously used term osteopenia Osteoporosis (T-score = or below -2.5) Medical evaluation for secondary causes of low bone mineral density may be appropriate. FRAX is a World Health Organization validated fracture risk assessment tool that calculates a person's 10 year probability of a major osteoporosis related fracture and hip fracture. According to the National Osteoporosis Foundation guidelines, postmenopausal women and men age 50 or older with low bone mass and a 10 year probability of a major osteoporosis related fracture = or greater than 20% or a 10 year probability of a hip fracture = or greater than 3% should be considered for treatment. For further information, including treatment recommendations, please refer to the 2013 ISCD Official Positions (http://www.iscd.org) and the NOF's Clinician's Guide to Prevention and Treatment of Osteoporosis (http://www.nof.org/professionals/clinical-guidelines) us Randy COSBY IMG DEXA ORDERABLES Final Res ult from Last 3 Months or Most Recently Relevant to Health Maintenance Insurance MEDICARE [facility] Care Teams Manager Business Process Relationship Specialty Start Date End Date Randy Friedman [address] [place] [address] PCP - General Physician Gis Database Administrator 11/11/15
--- OUTSIDE RECORDS SUMMARY | 2024-08-20 18:01 | XMS_ITS | Encounter Summary ---
Author Organization [facility] Address [address] [place] [address] Phone Care Team Providers Care Respiratory Therapy Director Name Role Phone Randy Friedman Primary Care Provider [phone] Encounter Details Date Type Department Care Team (Late st Contact Info) Description 05/06/2021 [facility] Scheduling [address] [place] [address] Randy Friedman PAC [address] [place] [address] Encounter for screening mammogram for malignant neoplasm of breast (Primary Dx) Social History Tobacco Use Types Packs/Day Years Used Date Smoking Tobacco: Never Assessed Comments No Sex and Gender Information Value Date Recorded Sex Assigned at Not on file Legal Sex Female 1:17 PM CDT Gender Identity Not on file Sexual Orientation Not on file documented as of this encounter Plan of Treatment Not on file documented as of this encounter Visit Diagnoses Diagnosis Encounter for screening mammogram for malignant neoplasm of breast- Primary Other screening mammogram documented in this encounter Care Teams Respiratory Therapy Director Relationship Specialty Start Date End Date Randy Friedman PAC [address] [place] [address] PCP - General Physician Compliance Testing Analyst 11/11/15 documented as of this encounter
== END 2024-08-20 15:19 | disposition home or self-care (01) ==
PROVIDERS: PCP Physician Assistant; Visit Provider Physician Assistant
DX: M54.16 Radiculopathy, lumbar region (principal); M43.06 Spondylolysis, lumbar region
CPT/HCPCS: 72100

== ENCOUNTER 2024-08-23 09:04 | Outpatient (CLI) | payer MEDICARE, SELFPAY | END 2024-08-23 09:05 | disposition home or self-care (01) | PROVIDERS: PCP Physician Assistant; Visit Provider Physician Assistant | DX: M54.16 Radiculopathy, lumbar region (principal); M43.06 Spondylolysis, lumbar region | CPT/HCPCS: 72148 ==

== ENCOUNTER 2024-09-26 13:05 | Outpatient (RCR) | payer MEDICARE, SELFPAY ==
--- NOTE | 2024-09-26 13:51 | OPREHPOC ---
Outpatient Therapy Plan of Care This is a Multidisciplinary Plan of Care that may contain components documented by all disciplines (PT, OT, and ST.) PT Problem 1 PT Problem #1 Knowledge Deficit PT Goal 1 Goal / Goal Update Independent and compliant with HEP. Target Visit 4 PT Problem 2 PT Problem #2 Impaired Strength PT Goal 1 Goal / Goal Update Improve bilat hip strength to 5/5. Improve lower abdominal strength to 4+/5. Improve upper abdominal strength to 4+/5. Target Visit 12 PT Problem 3 PT Problem #3 Pain PT Goal 1 Goal / Goal Update Pt to report no more than 1/10 low back pain with activity. Pt to report neck/shoulder pain no more than 3/10 with activity. Target Visit 12 PT Problem 4 PT Problem #4 Impaired Functional Mobility PT Goal 1 Goal / Goal Update Pt to report no more than 30% disability on neck disability index. Pt to report no more than 30% disability on back index. Pt to be able to stand/walk for more than 1 hour before onset of back pain. Target Visit 12
--- NOTE | 2024-09-26 13:51 | PTOPEVAL1 ---
Assessment and note entered by Tanvi Tate, PT Evaluation Information Assessment Status Evaluation ICD-10 Condition Codes (PT) Cervicalgia M54.2,Radiculopathy, lumbar region M54 .16 Onset 06/27/24 Subjective Information Charmaine reports onset of low back pain years ago but it got worse in June 2024 after shoveling snow. She reports pain is located centrally in the back as well as pain radiating down both legs (L> R) but that it's subsided quite a bit since she got a steroid shot on Tuesday. Prior to getting the shot she struggled with standing and walking, getting out of bed and getting out of chairs. She still has some pain with these movements but it's much more tolerable after getting the shot. She's also able to sleep through the night after getting the shot which she previously was unable to do. States she also had neck surgery 5 years ago and that her neck pain radiates into her shoulder blades, which is how it felt before she got surgery. Overall her lower back pain is more egregious compared to her neck pain. Reported Pain Level Pain Score 5,2: Self Report Assessment PT Clinical Summary Mrs. Verdin is a 73 yo female who enters the clinic with reports of neck and low back pain with radicular pain. She experiences neck pain radiating into her shoulder blades however her cervical ROM and strength are excellent. Her low back pain radiates down both legs (L>R) and significantly impaired her ability to stand, walk, bend forward, get in/out of bed and chairs, however this pain has subsided somewhat since getting a steroid shot in the low back on Tuesday. She demonstrates impaired hip flexion and core strength and will benefit from skilled physical therapy intervention to improve on these deficits to be able to perform functional tasks with less pain. Plan of Care Interventions Electrical Stimulation,Gait Training,Hot Pack/Cold Pack,Manual Therapy,Mechanical Traction,Neuro Re- education,Patient/Caregiver Education,Therapeutic Activities,Therapeutic Exercise,Self-Care/Home Management PT Services Indicated Yes Treatment Frequency and 2x/week for 12 visits Duration These treatments will address the objective and functional deficits as defined above. The patient will be advanced safely and appropriately in order for the patient to progress towards his/her prior level of function. Additional exercises will be introduced and as well as a comprehensive home exercise program upon discharge, if needed, ?to ensure carryover of functional gains achieved in the clinic. This treatment plan has been reviewed and agreement upon by the patient.
--- NOTE | 2024-11-01 15:45 | OPREHPOC ---
Outpatient Therapy Plan of Care This is a Multidisciplinary Plan of Care that may contain components documented by all disciplines (PT, OT, and ST.) PT Problem 1 PT Problem #1 Knowledge Deficit PT Goal 1 Goal / Goal Update Independent and compliant with HEP. Target Visit 4 Progress Met PT Problem 2 PT Problem #2 Impaired Strength PT Goal 1 Goal / Goal Update Improve bilat hip strength to 5/5. Improve lower abdominal strength to 4+/5. Improve upper abdominal strength to 4+/5. Target Visit 12 Progress Not Met PT Problem 3 PT Problem #3 Pain PT Goal 1 Goal / Goal Update Pt to report no more than 1/10 low back pain with activity. Pt to report neck/shoulder pain no more than 3/10 with activity. Target Visit 12 Progress Not Met PT Problem 4 PT Problem #4 Impaired Functional Mobility PT Goal 1 Goal / Goal Update Pt to report no more than 30% disability on neck disability index. Pt to report no more than 30% disability on back index. Pt to be able to stand/walk for more than 1 hour before onset of back pain. Target Visit 12 Progress Not Met
--- NOTE | 2024-11-01 15:45 | PTOPPROG ---
Assessment and note entered by Tanvi Tate, PT Evaluation Information Assessment Status Progress ICD-10 Condition Codes (PT) Cervicalgia M54.2,Radiculopathy, lumbar region M54 .16 Onset 06/27/24 Subjective Information Charmaine reports her neck pain is still around a 5/ 10 and she thinks she'll need neck surgery. Her low back pain varies from no pain at all to 6/10 pain. Her sciatic symptoms are intermittent and she can stand/walk for around 30 mins before onset of pain. Assessment PT Clinical Summary Mrs. Verdin has attended 10 total skilled PT visits for neck and mid back pain. Since beginning therapy her status is relatively unchanged. She still has neck pain at rest and with movement, and her low back pain and radicular symptoms continue to vary with movement. She is unable to stand for longer than 30 mins without back pain and her lower extremity strength is also unchanged. She will benefit from continued skilled PT to keep addressing deficits to be able to perform functional and recreational tasks with less pain. Plan of Care Interventions Electrical Stimulation,Gait Training,Hot Pack/Cold Pack,Manual Therapy,Mechanical Traction,Neuro Re- education,Patient/Caregiver Education,Therapeutic Activities,Therapeutic Exercise,Self-Care/Home Management PT Services Indicated Yes Treatment Frequency and Continue per original POC Duration These treatments will address the objective and functional deficits as defined above. The patient will be advanced safely and appropriately in order for the patient to progress towards his/her prior level of function. Additional exercises will be introduced and as well as a comprehensive home exercise program upon discharge, if needed, ?to ensure carryover of functional gains achieved in the clinic. This treatment plan has been reviewed and agreement upon by the patient.
--- NOTE | 2024-11-09 16:14 | OPREHPOC ---
Outpatient Therapy Plan of Care This is a Multidisciplinary Plan of Care that may contain components documented by all disciplines (PT, OT, and ST.) PT Problem 1 PT Problem #1 Knowledge Deficit PT Goal 1 Goal / Goal Update Independent and compliant with HEP. Target Visit 4 Progress Met PT Problem 2 PT Problem #2 Impaired Strength PT Goal 1 Goal / Goal Update Improve bilat hip strength to 5/5. Improve lower abdominal strength to 4+/5. Improve upper abdominal strength to 4+/5. Target Visit 12 Progress Not Met PT Problem 3 PT Problem #3 Pain PT Goal 1 Goal / Goal Update Pt to report no more than 1/10 low back pain with activity. -met Pt to report neck/shoulder pain no more than 3/10 with activity. -not met Target Visit 12 Progress Partially Met PT Problem 4 PT Problem #4 Impaired Functional Mobility PT Goal 1 Goal / Goal Update Pt to report no more than 30% disability on neck disability index. Pt to report no more than 30% disability on back index. Pt to be able to stand/walk for more than 1 hour before onset of back pain. -met Target Visit 12 Progress Partially Met
--- NOTE | 2024-11-09 16:14 | PTOPPROG ---
Assessment and note entered by Tanvi Tate, PT Evaluation Information Assessment Status Progress ICD-10 Condition Codes (PT) Cervicalgia M54.2,Radiculopathy, lumbar region M54 .16 Onset 06/27/24 Subjective Information Pt reports her lower back is feeling better after getting a cortisone shot in it, but that her neck pain has been increasingly getting worse since starting therapy. She thinks the discs below her cervical fusion are starting to degenerate. She's getting cervical x-rays tomorrow and is scheduled to see a neuro, however she's hoping to avoid surgery. Assessment PT Clinical Summary Mrs. Verdin has attended 12 total skilled PT visits addressing neck and low back pain. Since beginning PT her low back pain has improved with exercises and recent cortisone shot, however her neck pain has continued to increase despite adherence to HEP. She is being referred to neuro for further evaluation. She will benefit from continued skilled PT intervention but will hold PT for now pending cervical x-rays and follow up with neuro. Plan of Care Interventions Electrical Stimulation,Gait Training,Hot Pack/Cold Pack,Manual Therapy,Mechanical Traction,Neuro Re- education,Patient/Caregiver Education,Therapeutic Activities,Therapeutic Exercise,Self-Care/Home Management PT Services Indicated Yes Treatment Frequency and Hold pending x-rays and follow up with neuro Duration These treatments will address the objective and functional deficits as defined above. The patient will be advanced safely and appropriately in order for the patient to progress towards his/her prior level of function. Additional exercises will be introduced and as well as a comprehensive home exercise program upon discharge, if needed, ?to ensure carryover of functional gains achieved in the clinic. This treatment plan has been reviewed and agreement upon by the patient.
--- NOTE | 2024-12-24 16:48 | PTOPDC ---
Assessment and note entered by Tanvi Tate, PT Evaluation Information Assessment Status Discharge - Pt Not Present ICD-10 Condition Codes (PT) Cervicalgia M54.2,Radiculopathy, lumbar region M54 .16 Onset 06/27/24 Subjective Information Mrs. Verdin attended 12 skilled PT visits for neck and low back pain. Pt underwent re-evaluation on and decided to hold PT until after she got cervical x-rays and saw a neurologist. As of this date pt has not returned to PT and her original PT order is , so will discharge this date. Assessment PT Clinical Summary Mrs. Verdin attended 12 skilled PT visits for neck and low back pain. Pt underwent re-evaluation on and decided to hold PT until after she got cervical x-rays and saw a neurologist. As of this date pt has not returned to PT and her original PT order is , so will discharge this date. Plan of Care PT Services Indicated No
== END 2024-11-09 20:00 | disposition home or self-care (01) ==
LOC: CHSPT 13:05
PROVIDERS: Visit Provider Neurological Surgery
DX: M54.50 Low back pain, unspecified (principal)
CPT/HCPCS: 97014; 97110; 97112; 97140; 97161; G0283

== ENCOUNTER 2024-11-09 15:05 | Outpatient (CLI) | payer MEDICARE, SELFPAY ==
--- OUTSIDE RECORDS SUMMARY | 2024-11-09 15:20 | XMS_ITS | Clinical Summary ---
Author Organization [address] Address [address] [place] [id number] Care Team Providers Care Reliability Technologist Name Role Phone Randy Friedman Primary Care Provider [phone] Allergies Active Allergy Reactions Criticality Noted Date Comments Sulfa (Sulfonamide Antibiotics) Other (See comments) Low 12/05/2023 Medications simvastatin (ZOCOR) 20 mg tablet 09/20/19 18 Active metFORMIN (GLUCOPHAGE) 500 mg tablet 09/20/19 18 Active ALPRAZolam (XANAX) 0.5 mg tablet 0 08/31/19 18 Active butalbital-acetami nophen-caffeine (FIORICET, ESGIC) 50-325-40 mg per tablet 09/23/19 18 Active CHANTIX 1 mg tablet 3 11/08/19 19 Active raazqjsu-eead-OI-c alcium-mins 18 mg iron-400 mcg-500 mg Ca [...] P.r.n. pain and swelling. Collaborating physician Jim Mcnela MD 30 tablet 12/01/19 24 Active Additional [...] NEC/NOS Type 2 diabetes mellitus without complication Overview (12/05/2023): DMII WO CMP NT ST UNCNTR Surgical History Surgery Date Site/Laterality Comments TUBAL LIGATION Bilateral tubal ligation CARPAL TUNNEL RELEASE Carpal tunnel release MOLE REMOVAL skin cancer mole removal Medical History Medical History Date Comments Hypertension Hypertension Hyperlipidemia Hyperlipidemia Depression Depression Headache Cancer (HCC) skin cancer Osteoporosis Migraines Family History Medical History Relation [...] on file Legal Sex Female 11:54 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 Electronically signed by: ROSHAN Prakash 10/31/2023 2:41 PM CDT EXAMINATION: SCREENING [...] of Race in Diagnosing Kidney Disease, JASN 202). The CKD-EPI equation should not be used for patients with unstable renal function and has not been validated in children and those over 70. Current interpretive data was last reviewed 2021. Blood 12/10/2021 9:33 PM CDT 12/10/2021 9:36 PM CDT us Giovanna Gonzales MD LAB BLOOD ORDERABLES Final Resul t [facility]) 1 [facility] Department of Laboratories [place] [id number] from Last 3 Months or Most Recently Relevant to Health Maintenance Insurance MEDICARE [employer] SENIOR [facility] MEDICARE Care Teams Reliability Technologist Relationship Specialty Start Date End Date Randy Friedman PA [address] [place] [address] PCP - General 05/16/17
--- OUTSIDE RECORDS SUMMARY | 2024-11-09 15:20 | XMS_ITS | Clinical Summary ---
Author Organization [facility] Address [address] [place] [address] Phone Care Team Providers Care Power System Dispatcher Name Role Phone Randy Friedman Primary Care Provider [phone] Family History Medical History Relation Name Comments [...] Procedure Name Priority Date/Time Associated Diagnosis Comments [facility] SCREENING BILATERAL DIGITAL W CAD W KEYLA Routine 08/18/2022 12:56 PM HOSPICE CLINICAL MANAGER Visit for screening mammogram [facility] BONE DENSITOMETRY AXIAL SKELETON Routine 02/17/2018 10:03 AM CDT Age related osteoporosis, unspecified pathological fracture presence from Last 3 Months or Most Recently Relevant to Health Maintenance Results * [facility] SCREENING BILATERAL DIGITAL W CAD W KEYLA (08/18/2022 12:56 PM HOSPICE CLINICAL MANAGER) Anatomical Region Laterality Modality breast Bilateral Mammography 08/18/2022 12:3 5 PM HOSPICE CLINICAL MANAGER Narrative 08/19/2022 8:49 AM HOSPICE CLINICAL MANAGER - [facility] SCREENING BILATERAL DIGITAL W CAD W KEYLA [...] dated: 06/29/2021, 06/09/2020, 05/21/2019, and 05/08/2018 [facility]. BREAST TISSUE:There are scattered fibroglandular densities in [...] exam. Electronically signed by: Anita wolfe/penrad:08/18/2022 17:11:15 [place] Continuous Churn(s): RT Sae(R)(M), [facility] letter sent: Normal Exam Reading location: [facility] BI-RADS: 2 Benign Procedure Note Anita Kenyon [...] exams dated: 06/29/2021, 06/09/2020, 05/21/2019, and 05/08/2018 [facility]. BREAST TISSUE:There are scattered fibroglandular [...] exam. Electronically signed by: Anita wolfe/penrad:08/18/2022 17:11:15 [place] Continuous Churn(s): RT Sae(R)(M), [facility] letter sent: Normal Exam Reading location: [facility] BI-RADS: 2 Benign us Randy Friedman [facility] IMG MAMMO ORDERABLES Final Re sult * [...] old F with given history of screening. 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 KLEBER: KLEBER Report ID: [id number] Reading Location: [place] [address] IMPRESSION: Low bone mass Bone mineral density: [...] Recently Relevant to Health Maintenance Insurance [facility]ICARE [facility] Care Teams Power System Dispatcher Relationship Specialty Start Date End Date Randy Friedman PAC [address] [place] [address] PCP - General Physician Oncology Admin 11/11/15
--- OUTSIDE RECORDS SUMMARY | 2024-11-09 15:20 | XMS_ITS | Encounter Summary ---
Author Organization [facility] Address [address] [place] [address] Phone Care Team Providers Care Senior Market Intelligence Consultant Name Role Phone Randy Friedman Primary Care Provider [phone] Encounter Details Date Type Department Care Team (Late st Contact Info) Description 05/06/2021 Transcribe Orders [facility] Central Scheduling [address] [place] [address] Randy Friedman PAC [address] [place] [address] Encounter for screening mammogram for malignant neoplasm [...] mammogram documented in this encounter Care Teams Senior Market Intelligence Consultant Relationship Specialty Start Date End Date Randy Friedman PAC [address] [place] [address] PCP - General Physician Contracts Specialist 11/11/15 documented as of this encounter
--- OUTSIDE RECORDS SUMMARY | 2024-11-09 15:20 | XMS_ITS | Referral Summary ---
Author Organization [address] Address [address] [place] [id number] Care Team Providers Care Brick Machine Operator Name Role Phone Randy Friedman Primary Care Provider [phone] Allergies Active Allergy Reactions Criticality Noted Date Comments Sulfa (Sulfonamide Antibiotics) Other (See comments) Low 12/05/2023 Medications simvastatin (ZOCOR) 20 mg tablet 09/20/19 18 Active metFORMIN (GLUCOPHAGE) 500 mg tablet 09/20/19 18 Active ALPRAZolam (XANAX) 0.5 mg tablet 0 08/31/19 18 Active butalbital-acetami nophen-caffeine (FIORICET, ESGIC) 50-325-40 mg per tablet 09/23/19 18 Active CHANTIX 1 mg tablet 3 11/08/19 19 Active ituunagx-qjgh-IY-c alcium-mins 18 mg iron-400 mcg-500 mg Ca [...] on file 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 Electronically signed by: ROSHAN SKELTON Narrative 10/31/2023 2:41 PM CDT EXAMINATION: SCREENING MAMMOGRAM [...] BLOOD ORDERABLES Final Resul t [facility]) 1 [facility] Department [place] [address] from Last 3 Months or Most Recently Relevant to Health Maintenance Insurance MEDICARE [employer] SENIOR [facility] MEDICARE Care Teams Brick Machine Operator Relationship Specialty Start Date End Date Randy Friedman PA [address] [place] [address] PCP - General 05/16/17
--- OUTSIDE RECORDS SUMMARY | 2024-11-09 15:21 | XMS_ITS | Data Portability ---
Author Organization [facility] Address [address] [place] [address] Care Team Providers Care Associate Professor Of Literacy Name Role Phone MAGDA FRIEDMAN Primary Care Provider Assessment No assessment recorded. Plan of Treatment Reminders Order Date Submit Date Provider Last Modified By Organization Details Last Modified Time Details Appointments None recorded. Lab drug screen, urine 2023 024 daniele In-Office Order, Internal Use Only DO Not Attach Compendium DO Not Attach Compendium, Do Not Delete/merge, [id number] 4 16:04:01 TSH + free T4, serum 2023 024 NAHOYM [facility], [address] [facility], [facility], [place], [address], 4 13:12:41 CBC 2023 024 NAHOMY [facility], [address] [facility], [facility], [place], [address], 4 13:12:45 CMP, serum or plasma 2023 024 NAHOMY [facility], [address] [facility], [facility], [place], [address], 4 13:12:43 lipid panel, serum 2023 024 NAHOMY [facility], [address] [facility], [facility], [place], [address], 4 13:12:42 HbA1c (hemoglobi n A1c), blood 2023 024 PANA In-Office Order, Internal Use Only DO Not Attach Compendium DO Not Attach Compendium, Do Not Delete/merge, [id number] 4 15:43:40 drug screen, urine 2023 024 daniele In-Office Order, Internal Use Only DO Not Attach Compendium DO Not Attach Compendium, Do Not Delete/merge, [id number] 4 15:41:45 Referral physical therapist [facility] [address] [place] [address], [address], 5 09:36:10 Procedures None recorded. Surgeries None recorded. Imaging XR, lumbar spine 2024 025 [facility], [address] [place], [address], 5 07:51:50 Medication Orders gabapentin 100 mg capsule [address] [facility] #[id number], [address], [place], [place], [id number], 5 15:44:31 cyclobenza mark 10 mg tablet [address] [facility] #[id number], [address], [place], [place], [id number], 5 15:44:30 ondansetro n 4 mg disintegra ting tablet [address] [facility] #84069, [address], [place], [place], [id number], 4 18:25:35 Imitrex 100 mg tablet [address] [facility] #[id number], [address], [place], [place], [id number], 18:25:39 escitalopr am 10 mg tablet 2023 024 NAHOMY [facility] #[id number], [address], [place], [place], [id number], 15:26:21 Patient TargetsNo targets recorded. Patient Instructions Encounter Date Encounter Id Patient Instructions Last Modified By Organization Details Last Modified Time 11/14/2023 [id number] learning about high blood pressure jnanney Not available 11/14/2023 15:23:23 migraine aura without a headache: care instructions jnanney Not available 11/14/2023 15:23:23 12/12/2023 [id number] A healthy lifestyle: care instructions jnanney Not available 12/12/2023 15:20:16 broken ankle: care instructions jnanney Not available 12/12/2023 15:20:16 07/06/2024 [id number] A healthy lifestyle: care instructions jnanney Not [...] 1.470 uIU/m L 0.450- 4.500 Not Available [facility] [address] [place], [address], 11/15/2023 13:12:41 11/14/19 24 11/15/2023 TSH+F REE T4 T4,free(dire ct) 1.19 NG/dL 0.82-1 .77 Not Available [facility] [address] [place], [address], 11/15/2023 13:12:41 11/14/19 24 11/15/2023 LIPID PANEL cholesterol, total 221 mg/dL 100-19 9 above high normal Not Available [address], [address], 11/15/2023 13:12:42 11/14/19 24 11/15/2023 LIPID PANEL triglyceride s 191 mg/dL 0-149 above high normal Not Available [address], [address], 11/15/2023 13:12:42 11/14/19 24 11/15/2023 LIPID PANEL HDL cholesterol 59 mg/dL >39 Not Available [address], [address], 11/15/2023 13:12:42 11/14/19 24 11/15/2023 LIPID PANEL VLDL cholesterol sha 34 mg/dL 5-40 Not Available [address], [address], 11/15/2023 13:12:42 11/14/19 24 11/15/2023 LIPID PANEL LDL chol calc (nih) 128 mg/dL 0-99 above high normal Not Available [address], [address], 11/15/2023 13:12:42 11/14/19 24 11/15/2023 COMP. METAB OLIC PANEL (14) glucose 151 mg/dL 70-99 above high normal Not Available [address], [address], 11/15/2023 13:12:43 11/14/19 24 11/15/2023 COMP. METAB OLIC PANEL (14) BUN 16 mg/dL 8-27 Not Available [address], [address], 11/15/2023 13:12:43 11/14/19 24 11/15/2023 COMP. METAB OLIC PANEL (14) creatinine 0.81 mg/dL 0.57-1 .00 Not Available [address], [address], 11/15/2023 13:12:43 11/14/19 24 11/15/2023 COMP. METAB OLIC PANEL (14) eGFR 78 mL/mi n/1.7 3 >59 Not Available [address], [address], 11/15/2023 13:12:43 11/14/19 24 11/15/2023 COMP. METAB OLIC PANEL (14) BUN/creatini ne ratio 15 06-28 Not Available [address], [address], 11/15/2023 13:12:43 11/14/19 24 11/15/2023 COMP. METAB OLIC PANEL (14) sodium 137 mmol/ L 134-14 4 Not Available [address], [address], 11/15/2023 13:12:43 11/14/19 24 11/15/2023 COMP. METAB OLIC PANEL (14) potassium 4.4 mmol/ L 3.5-5. 2 Not Available [address], [address], 11/15/2023 13:12:43 11/14/19 24 11/15/2023 COMP. METAB OLIC PANEL (14) chloride 101 mmol/ L 96-106 Not Available [address], [address], 11/15/2023 13:12:43 11/14/19 24 11/15/2023 COMP. METAB OLIC PANEL (14) carbon dioxide, total 23 mmol/ L 20 Not Available [address], [address], 11/15/2023 13:12:43 11/14/19 24 11/15/2023 COMP. METAB OLIC PANEL (14) calcium 9.6 mg/dL 8.7-10 .3 Not Available [address], [address], 11/15/2023 13:12:43 11/14/19 24 11/15/2023 COMP. METAB OLIC PANEL (14) protein, total 6.6 g/dL 6.0-8. 5 Not Available [address], [address], 11/15/2023 13:12:43 11/14/19 24 11/15/2023 COMP. METAB OLIC PANEL (14) albumin 4.4 g/dL 3.9-4. 9 Not Available [address], [address], 11/15/2023 13:12:43 11/14/19 24 11/15/2023 COMP. METAB OLIC PANEL (14) globulin, total 2.2 g/dL 1.5-4. 5 Not Available [address], [address], 11/15/2023 13:12:43 11/14/19 24 11/15/2023 COMP. METAB OLIC PANEL (14) A/G ratio 2.0 1.2-2. 2 Not Available [address], [address], 11/15/2023 13:12:43 11/14/19 24 11/15/2023 COMP. METAB OLIC PANEL (14) bilirubin, total <0.2 mg/dL 0.0-1. 2 Not Available [address] [place], [address], 11/15/2023 13:12:43 11/14/19 24 11/15/2023 COMP. METAB OLIC PANEL (14) alkaline phosphatase 99 IU/L 44-121 Not Available [address], [address], 11/15/2023 13:12:43 11/14/19 24 11/15/2023 COMP. METAB OLIC PANEL (14) AST (SGOT) 15 IU/L 0-40 Not Available [address], [address], 11/15/2023 13:12:43 11/14/19 24 11/15/2023 COMP. METAB OLIC PANEL (14) ALT (SGPT) 19 IU/L 0-32 Not Available [address], [address], 11/15/2023 13:12:43 11/14/19 24 11/15/2023 CARDI OVASC ULAR REPOR T interpretati on Note Suppl ana luisa valdez is avail able. Not Available [address], [address], 11/15/2023 13:12:44 11/14/19 24 11/15/2023 CARDI OVASC ULAR REPOR T pdf . Not Available [address], [address], 11/15/2023 13:12:44 11/14/19 24 11/15/2023 CBC, PLATE LET, NO DIFFE RENTI AL WBC 8.7 x10e3 /uL 3.4-10 .8 Not Available [address], [address], 11/15/2023 13:12:45 11/14/19 24 11/15/2023 CBC, PLATE LET, NO DIFFE RENTI AL RBC 4.03 x10e6 /uL 3.77-5 .28 Not Available [address], [address], 11/15/2023 13:12:45 11/14/19 24 11/15/2023 CBC, PLATE LET, NO DIFFE RENTI AL hemoglobin 12.7 g/dL 11.1-1 5.9 Not Available [address], [address], 11/15/2023 13:12:45 11/14/19 24 11/15/2023 CBC, PLATE LET, NO DIFFE RENTI AL hematocrit 37.7 % 34.0-4 6.6 Not Available [address], [address], 11/15/2023 13:12:45 11/14/19 24 11/15/2023 CBC, PLATE LET, NO DIFFE RENTI AL MCV 94 fL 79-97 Not Available [address], [address], 11/15/2023 13:12:45 11/14/19 24 11/15/2023 CBC, PLATE LET, NO DIFFE RENTI AL MCH 31.5 pg 26.6-3 3.0 Not Available [address], [address], 11/15/2023 13:12:45 11/14/19 24 11/15/2023 CBC, PLATE LET, NO DIFFE RENTI AL MCHC 33.7 g/dL 31.5-3 5.7 Not Available [address], [address], 11/15/2023 13:12:45 11/14/19 24 11/15/2023 CBC, PLATE LET, NO DIFFE RENTI AL RDW 12.8 % 11.7-1 5.4 Not Available [facility] [address] [place], [address], 11/15/2023 13:12:45 11/14/19 24 11/15/2023 CBC, PLATE LET, NO DIFFCleo FUENTES AL platelets 195 x10e3 /uL 150-45 0 Not Available [address], [address], 11/15/2023 13:12:45 11/14/19 24 11/14/2023 HbA1c (hemo globi n A1c), blood HbA1c 5.5 Not Available In-Office Order Internal Use Only DO Not Attach Compendium DO Not Attach Compendium, Do Not Delete/merge, [id number] 11/14/2023 15:23:11 11/14/19 24 11/14/2023 drug scree n, urine Methamphetam ine Negati ve Not Available In-Office Order Internal Use Only DO Not Attach Compendium DO Not Attach Compendium, Do Not Delete/merge, [id number] 11/11/2023 17:00:36 11/14/19 24 11/14/2023 drug scree n, urine THC Negati ve Not Available In-Office Order Internal Use Only DO Not Attach Compendium DO Not Attach Compendium, Do Not Delete/merge, [id number] 11/11/2023 17:00:36 11/14/19 24 11/14/2023 drug scree n, urine Cocaine (Delicia) Negati ve Not Available In-Office Order Internal Use Only DO Not Attach Compendium DO Not Attach Compendium, Do Not Delete/merge, [id number] 11/11/2023 17:00:36 11/14/19 24 11/14/2023 drug scree n, urine Barbiturates (Bar) Positi ve Not Available In-Office Order Internal Use Only DO Not Attach Compendium DO Not Attach Compendium, Do Not Delete/merge, [id number] 11/11/2023 17:00:36 11/14/19 24 11/14/2023 drug scree [...] DO Not Attach Compendium, Do Not Delete/merge, [id number] 12/12/2023 08:53:54 12/12/1912/12/2023 drug scree n, urine Fentanyl Negati ve Not Available In-Office Order Internal Use Only DO Not Attach Compendium DO Not Attach Compendium, Do Not Delete/merge, [id number] 12/12/2023 08:53:54 10/31/1910/28/2023 MAMMO , scree moises, digit al, bilat eral No [facility] [address] , [place], [address], 10/31/2023 16:59:39 08/21/19 25 08/20/2024 XR, lumba r spine No observ ation record ed. [facility] [address] [place], [address], 08/21/2024 12:28:56 08/23/1908/23/2024 MRI, lumba r spine , w/o contr ast No observ ation record ed. [facility] [address] [place], [address], 08/23/2024 13:48:49 Result Notes None recorded. Problems Name Problem SNOMED Code Status Onset Date Resolution Date Notes Provider Name and Address Organization Details Recorded Time Type 2 diabetes mellitus without complication 855438331 Active LUBNA [place], SUSAN - [facility] 11:02:35 Hyperlipidemia 20682894 Active 2013 LUBNA [place], SUSAN - [facility] 11:02:35 Type 2 diabetes mellitus 83539179 Active 2013 LUBNA [place], SUSAN - [facility] 11:02:35 Hypertensive disorder 67332058 Active 2013 LUBNA [place] - [facility] 11:02:35 Migraine 79929363 Active LUBNA [place], [place] - [place] 11:02:35 Osteoarthritis 959534038 Active LUBNA [place], [facility] 11:02:35 Irritable bowel syndrome 51311368 Active LUBNA [place], [facility] 11:02:35 Problem Notes None recorded. Procedures Surgical History Date Name Laterality Status Provider Name and Address Organization Details Recorded Time Date of Last Mammogram completed Georgia Figueroa MA [facility] 12/23/2021 17:01:24 Tubal Ligation completed Cassandra Padilla [place] - [facility] 08/23/2014 15:42:56 Other completed Cassandra Padilla MA [facility] 08/23/2014 15:42:56 Imaging Results Imaging Date Name Status LastModified by Organiz ation Details LastModified Time 10/28/2023 MAMMO, screening, digital, bilateral completed PANA [place] [address] [place], [address], 10/31/2023 16:59:39 08/20/2024 XR, lumbar spine completed [facility] [address] [place], [address], 08/21/2024 12:28:56 08/23/2024 MRI, lumbar spine, w/o contrast completed [facility] [address] [place], [address], 08/23/2024 13:48:49 Procedure Notes None recorded. Medical Equipment None Reported. Allergies Allergen ID Allergen Name Allergen Category Reaction Reaction Severity Criticality Documentation Date Start Date Code Code System Note Provider Name and Address Organization Details Recorded Time 36372 Substance with sulfonami de structure and antibacte rial mechanism of action (substanc e) medicatio n Not available Not available Not available 08/23/2014 50289 8003 SNOMED Cassandra BeyertrevoradityaLUBNA ir[place], [facility] 5 15:42:56 Medications Name Sig Start Date Stop Date Status Note LastModified by Organization Details LastModified Time cyclobenzap rine 10 mg tablet TAKE 1 TABLET BY MOUTH THREE TIMES DAILY active Not Available Not Available No t Available amoxicillin 500 mg capsule TAKE ONE CAPSULE BY MOUTH EVERY 8 HOURS UNTIL ALL TAKEN active Not Available Not Available No t Available metformin 500 mg tablet TAKE 1 TABLET BY MOUTH TWICE DAILY WITH THE MORNING AND EVENING MEAL active Not Available Not Available No t Available butalbital- acetaminoph en-caffeine 50 mg-325 mg-40 [...] tablet TAKE 1 TABLET BY MOUTH EVERY 6 HOURS active Not Available Not Available No t Available butalbital- acetaminoph en-caffeine 50 mg-325 mg-40 mg tablet TAKE 2 TABLETS BY MOUTH TWICE DAILY NEEDED active Not Available Not Available No t Available alprazolam 0.5 mg tablet TAKE 1 TABLET BY MOUTH THREE TIMES DAILY NEEDED 2024 active Not Available Not Available Not Avai lable amoxicillin 875 mg tablet TAKE 1 TABLET [...] tablet TAKE 1 TABLET BY MOUTH DAILY active Not Available Not Available No t Available cephalexin 500 mg capsule TAKE 1 CAPSULE BY MOUTH THREE TIMES DAILY FOR 10 DAYS 08/12 completed Not Available Not Available Not Available simvastatin 20 mg tablet TAKE 1 TABLET BY MOUTH DAILY active Not Available Not Available No t Available nicotine 21 mg/24 hr daily transdermal patch Apply 1 patch every day by transderm al route for 42 days. 05/01 completed Not Available Not Available Not Available gabapentin 300 mg capsule 03/26 completed Not Available Not Available Not Available gabapentin 100 mg capsule TAKE 1 CAPSULE BY MOUTH THREE TIMES DAILY active Not Available Not Available No t Available cefuroxime axetil 500 mg tablet Take 1 [...] tablet TAKE 1 TABLET BY MOUTH DAILY active Not Available Not Available No t Available naproxen 500 mg tablet TAKE 1 TABLET BY MOUTH 2 TIMES A DAY WITH MEALS NEEDED FOR PAIN AND SWELLING 12/11 completed Not Available Not Available Not Available azithromyci n 500 mg tablet TAKE 1 TABLET BY MOUTH EVERY DAY FOR 3 DAYS 08/06 completed Not Available Not Available Not Available escitalopra m 10 mg tablet TAKE 1 TABLET BY MOUTH EVERY DAY 2024 active Not Available Not Available Not Avai lable rosuvastati n 10 mg tablet 12/22 completed Not Available Not Available Not Available nitrofurant oin monohydrate /macrocryst als 100 mg capsule TAKE 1 CAPSULE BY MOUTH EVERY 12 HOURS FOR 10 DAYS 11/13 completed Not Available Not Available Not Available varenicline tartrate 1 mg tablet TAKE 1 TABLET BY MOUTH TWICE DAILY DIRECTED active Not Available Not Available No t Available Chantix Starting Month Box 0.5 mg (11)-1 [...] and Address Organization Details Last Updated DateTime [id number]||2024-11-10 14:09:00|XR_ITS|[facility]|Imaging|[id number]|"XR cervical spine 4-5V Ordering provider: Luciana Queen APRN History: . Cervical pain/ cervicalgia . Comparison: None. FINDINGS: VERTEBRAL BODIES: Normal height and alignment. No visible fracture or subluxation. The dens is intact . Postoperative changes seen at the levels of C3, C4, C5, C6 and C7. Minimal anterolisthesis at the l evel of C7-T1 is not excluded on the flexion images. DISK SPACES: Disc spacers are also seen from the level of C3-C4 down to C6-C7. PARASPINOUS SOFT TISSUES: No prevertebral soft tissue swelling. IMPRESSION: No acute osseous abnormality cervical spine. Possible minimal anterolisthesis at the level of C7-T1. Postoperative changes. Reviewed, dictated and finalized at location A. IMPRESSION: No acute osseous abnormality cervical spine. Possible minimal anterolisthesis at the level of C7-T1. Postoperative changes. "
== END 2024-11-09 15:06 | disposition home or self-care (01) ==
LOC: CHSIMG 15:07
PROVIDERS: PCP Physician Assistant; Visit Provider Nurse Practitioner Adult Health
DX: M54.2 Cervicalgia (principal); Z98.890 Other specified postprocedural states
CPT/HCPCS: 72050

== ENCOUNTER 2024-11-22 12:21 | Outpatient (CLI) | payer MEDICARE, SELFPAY ==
--- NOTE | ~2024-11-22 | MM_ITS ---
EXAMINATION: MM screening bigg BI w alanna HISTORY: Screening TECHNIQUE: Craniocaudal and mediolateral oblique 3-D tomosynthesis images were obtained and synthetic 2-D images were generated. CAD analysis was submitted and interpreted. COMPARISON: No prior mammogram is available for comparison at this institution. BREAST PARENCHYMAL COMPOSITION: Not dense: There are scattered areas of fibroglandular density. FINDINGS: There is no evidence of suspicious mass, calcification, or architectural distortion to sugg est malignancy in either breast. There has been no suspicious interval change. IMPRESSION: 1. No mammographic evidence of malignancy. 2. Recommend routine screening mammography in one year. BI-RADS Category 1: Negative Reviewed, dictated and finalized at location A.
--- OUTSIDE RECORDS SUMMARY | 2024-11-22 12:25 | XMS_ITS | Encounter Summary ---
Author Organization [facility] Address [address] [place] [address] Phone Care Team Providers Care Database Modeler Name Role Phone Randy Friedman Primary Care Provider [phone] Encounter Details Date Type Department Care Team (Late st Contact Info) Description 05/06/2021 [facility] [address] [place] [address] Randy Friedman PAC [address] [place] [address] Encounter for screening mammogram for malignant neoplasm [...] mammogram documented in this encounter Care Teams Database Modeler Relationship Specialty Start Date End Date Randy Friedman PAC [address] [place] [address] PCP - General Physician Commercial Attache 11/11/15 documented as of this encounter
--- OUTSIDE RECORDS SUMMARY | 2024-11-22 12:25 | XMS_ITS | Clinical Summary ---
Author Organization [facility] Address [address] [place] [address] Phone Care Team Providers Care Refrigerating Machine Operator Name Role Phone Randy Friedman Primary Care Provider [phone] Family History Medical History Relation Name Comments [...] Procedure Name Priority Date/Time Associated Diagnosis Comments [facility] SCREENING BILATERAL DIGITAL W CAD W KEYLA Routine 08/18/2022 12:56 PM DEBONE SUPERVISOR Visit for screening mammogram [facility] BONE DENSITOMETRY AXIAL SKELETON Routine 02/17/2018 10:03 AM CDT Age related osteoporosis, unspecified pathological fracture presence from Last 3 Months or Most Recently Relevant to Health Maintenance Results * [facility] SCREENING BILATERAL DIGITAL W CAD W KEYLA (08/18/2022 12:56 PM DEBONE SUPERVISOR) Anatomical Region Laterality Modality breast Bilateral Mammography 08/18/2022 12:3 5 PM DEBONE SUPERVISOR Narrative 08/19/2022 8:49 AM DEBONE SUPERVISOR - [facility] SCREENING BILATERAL DIGITAL W CAD W [...] dated: 06/29/2021, 06/09/2020, 05/21/2019, and 05/08/[address] [facility]. BREAST TISSUE:There are scattered fibroglandular densities in [...] exam. Electronically signed by: Anita wolfe/penrad:08/18/2022 17:11:15 Projects Manager(s): RT Sae(R)(M), [facility] letter sent: Normal Exam Reading location: [facility] BI-RADS: 2 Benign Procedure Note [...] exams dated: 06/29/2021, 06/09/2020, 05/21/2019, and 05/08/2018 [facility]. BREAST TISSUE:There are scattered fibroglandular densities in [...] exam. Electronically signed by: Anita wolfe/penrad:08/18/2022 17:11:15 Projects Manager(s): RT Sae(R)(M), [facility] letter sent: Normal Exam Reading location: [facility] BI-RADS: 2 Benign us Randy Friedman [facility] IMG MAMMO ORDERABLES Final Re [...] old F with given history of screening. 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 Motor Coach Tour Operator/Model: [employer] (S/N [id number]) CLINICAL INFORMATION: Current height: 63.5 inches Maximum [...] Donaldo Tolentino M.D. KLEBER: KLEBER Report ID: [id number] Reading Location: [place] [address] IMPRESSION: Low bone mass Bone mineral density: [...] Recently Relevant to Health Maintenance Insurance MEDICARE [facility] SENIOR SUPPLEMENTAL Care Teams Refrigerating Machine Operator Relationship Specialty Start Date End Date Randy Friedman PAC [address] [place] [address] PCP - General Physician Pet House Sitter 11/11/15
== END 2024-11-22 12:22 | disposition home or self-care (01) ==
PROVIDERS: PCP Physician Assistant; Visit Provider Physician Assistant
DX: Z12.31 Encounter for screening mammogram for malignant neoplasm of breast (principal)
CPT/HCPCS: 77063; 77067

== ENCOUNTER 2024-11-29 14:13 | Outpatient (CLI) | payer MEDICARE, SELFPAY ==
--- NOTE | ~2024-11-29 | XR_ITS ---
XR shoulder RT min 2V 11/29/2024 14:33 Indication: Right shoulder pain Procedure: 4 views right shoulder Comparison: No prior studies for comparison. Findings: No fracture, subluxation or dislocation. There is anatomic alignment. Mild osteoarthritis o f the acromioclavicular joint. Surrounding osseous structures are unremarkable. Osteopenia. Impression: 1: Mild osteoarthritis of the acromioclavicular joint. Reviewed, dictated and finalized at location A. Impression: 1: Mild osteoarthritis of the acromioclavicular joint.
--- NOTE | ~2024-11-29 | XR_ITS ---
XR shoulder LT min 2V 11/29/2024 14:33 Indication: Left shoulder pain Procedure: 4 views left shoulder Comparison: No prior studies for comparison. Findings: No fracture, subluxation or dislocation. Osteopenia. No soft tissue abnormality. No foreign bodies. Impression: 1: No significant bone or joint abnormality. Reviewed, dictated and finalized at location A. Impression: 1: No significant bone or joint abnormality.
--- OUTSIDE RECORDS SUMMARY | 2024-11-29 14:59 | XMS_ITS | Encounter Summary ---
Author Organization [facility] Address [address] [place] [address] Phone Care Team Providers Care Show Operations Supervisor Name Role Phone Randy Friedman Primary Care Provider [phone] Encounter Details Date Type Department Care Team (Late st Contact Info) Description 05/06/2021 Transcribe Orders [facility] Central Scheduling [address] [place] [address] Randy Friedman PAC [address] [place] [address] Encounter for screening mammogram for malignant neoplasm [...] mammogram documented in this encounter Care Teams Show Operations Supervisor Relationship Specialty Start Date End Date Randy Friedman PAC [address] [place] [address] PCP - General Physician Head Machine Feeder 11/11/15 documented as of this encounter
--- OUTSIDE RECORDS SUMMARY | 2024-11-29 14:59 | XMS_ITS | Clinical Summary ---
Author Organization [facility] Address [address] [place] [address] Phone Care Team Providers Care Drop Board Man Name Role Phone Randy Friedman Primary Care Provider [phone] Family History Medical History Relation Name Comments [...] Bone Density 02/18/2020 02/17/2018 Mammogram 08/18/2023 08/18/2022, 08/2021, 06/09/2020, Additional history exists SARS-COV-2 Immunization ( season) 2024 04/19/2023, 04/02/2022, 04/21/2021, Additional history exists Influenza Immunization (Season Ended) 2025 04/19/2023, 04/02/2022, 04/21/2021, Additional history exists Respiratory Syncytial Virus (RSV) Immunization (Adult) Completed 05/03/2023 Hepatitis B Immunization Aged Out No longer eligible based on patient's age to complete this topic Human Papillomavirus (HPV) Immunization Aged Out No longer eligible based on patient's age to complete this topic Meningococcal Immunization (ACWY) Aged Out No longer eligible based on patient's age to complete this topic Rotavirus Immunization Aged Out No lo nger eligible based on patient's age to complete this topic Procedures Procedure Name Priority Date/Time Associated Diagnosis Comments [facility] SCREENING BILATERAL DIGITAL W CAD W KEYLA Routine 08/18/2022 12:56 PM [employer] CLAIM EXAMINER Visit for screening mammogram [facility] BONE DENSITOMETRY AXIAL SKELETON Routine 02/17/2018 10:03 AM CDT Age related osteoporosis, unspecified pathological fracture presence from Last 3 Months or Most Recently Relevant to Health Maintenance Results * [facility] SCREENING BILATERAL DIGITAL W CAD W KEYLA (08/18/2022 12:56 PM [employer] CLAIM EXAMINER) Anatomical Region Laterality Modality breast Bilateral Mammography 08/18/2022 12:3 5 PM [employer] CLAIM EXAMINER Narrative 08/19/2022 8:49 AM [employer]OBI[employer] INSURANCE CLAIM EXAMINER - [facility] SCREENING BILATERAL DIGITAL W CAD W [...] dated: 06/29/2021, 06/09/2020, 05/21/2019, and 05/08/2018 [facility]. BREAST TISSUE:There are scattered fibroglandular [...] exam. Electronically signed by: Anita wolfe/penrad:08/18/2022 17:11:15 Photoengraving Sketch Maker(s): RT Sae(R)(M), [facility] letter sent: Normal Exam Reading location: [facility] BI-RADS: 2 Benign Procedure Note [...] exams dated: 06/29/2021, 06/09/2020, 05/21/2019, and 05/08/2018 [facility]. BREAST TISSUE:There are scattered fibroglandular densities in [...] exam. Electronically signed by: Anita wolfe/penrad:08/18/2022 17:11:15 Photoengraving Sketch Maker(s): RT Sae(R)(M), [facility] letter sent: Normal Exam Reading location: [facility] BI-RADS: 2 Benign Randy Friedman [facility] MAMMO ORDERABLES Final Re sult * JASWINDER [...] Narrative 02/17/2018 3:32 PM CDT EXAM DESCRIPTION: [facility] BONE DENSITOMETRY AXIAL SKELETON REASON FOR STUDY: 67 y/o year old F with given history of screening. 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) CLINICAL INFORMATION: Current height: 63.5 inches Maximum [...] signed by Donaldo SHAHID: KLEBER Report ID: [id number] Reading Location: [place] [address] IMPRESSION: Low bone mass Bone mineral density: [...] to Prevention and Treatment of Osteoporosis (http://www.nof.org/professionals/clinical-guidelines) Randy Friedman [facility] IMG DEXA ORDERABLES Final Res ult from Last 3 Months or Most Recently Relevant to Health Maintenance Insurance MEDICARE AET SENIOR SUPPLEMENTAL Care Teams Drop Board Man Relationship Specialty Start Date End Date Randy Friedman, [facility] [address] [place] [address] PCP - General Physician Guest Associate 11/11/15
== END 2024-11-29 14:14 | disposition home or self-care (01) ==
LOC: CHSIMG 14:17
PROVIDERS: PCP Physician Assistant; Visit Provider Nurse Practitioner Family
DX: M25.511 Pain in right shoulder (principal); M25.512 Pain in left shoulder; M19.011 Primary osteoarthritis, right shoulder
CPT/HCPCS: 73030